=== PATIENT | male | born 1930 | race Two or more races ===

== ENCOUNTER 2016-07-01 12:36 | Emergency (ER) | payer MEDICARE, OTHER ==
[~2016-07-01] VITALS: Ht 172.7 cm; Wt 86.2 kg
[~2016-07-01 12:36] MED LIST: AMBIEN5 MG ORAL; ASPIR 8181 MG ORAL; ATORVASTATIN CA20 MG ORAL; AVODART0.5 MG ORAL; CEPHALEXIN500 MG ORAL; COLACE100 MG ORAL; CRESTOR10 M1 ORAL; DESYREL50 MG ORAL; DEXILANT60 MG ORAL; DIOVAN HCT 1601 EAC1 ORAL; INVOKANA100 MG PO; JANUVIA50 MG ORAL; KEFLEX500 M1 ORAL; LEXAPRO10 MG ORAL; LYRICA150 MG ORAL; MACROBID100 MG ORAL; RAPAFLO8 MG ORAL; VALSARTAN-HCTZ1 EAC2 ORAL; [UNRECOGNIZED DRUG - REMARK]
[2016-07-01] MEDS ORDERED: METFORMIN HCL500 M1 ORAL ×2 (13:15→13:16)
[2016-07-01 13:53] LABS: APPEARANCE,URINE SLIGHTLY CLOUDY; KETONES,URINE NEGATIVE (NEGATIVE); LEUKOCYTE ESTERASE ,URINE 3+ (NEGATIVE); NITRITE,URINE NEGATIVE (NEGATIVE); PH,URINE 5 (4.5-8.0); PROTEIN,URINE 2+ (NEGATIVE); UROBILINOGEN,URINE NORMAL MG/DL (0.0-1.0)
[2016-07-01 13:58] LABS: EOSINOPHILS % (AUTO) 1.4 % (0.0-3.0); LYMPHOCYTES % (AUTO) 29.6 % (20.0-45.0); MEAN CORPUSCULAR HEMOGLOBIN 31.2 PG (27.0-31.0); MEAN CORPUSCULAR HGB CONC 33.3 G/DL (32.0-36.0); MEAN CORPUSCULAR VOLUME 94 FL (80-99); MEAN PLATELET VOLUME 8.2 FL (6.5-10.1); MONOCYTES % (AUTO) 5.8 % (1.0-10.0); NEUTROPHILS % (AUTO) 62.3 % (45.0-75.0); PLATELET COUNT 219 K/UL (150-450); RED BLOOD COUNT 5.23 M/UL (4.70-6.10); RED CELL DISTRIBUTION WIDTH 12.5 % (11.6-14.8); WHITE BLOOD COUNT 8.7 K/UL (4.8-10.8)
[2016-07-01 14:03] LABS: ALANINE AMINOTRANSFERASE 13 U/L (3-41); ALBUMIN/GLOBULIN RATIO 1.2 (1.0-2.7); ANION GAP 11 (5-15); ASPARTATE AMINO TRANSFERASE 18 U/L (5-40); CALCIUM 9.8 mg/dL (8.6-10.2); CARBON DIOXIDE 32 mEQ/L (20-30); CHLORIDE 92 mEQ/L (98-107); CREATININE 1.2 mg/dL (0.7-1.2); HEMOLYSIS 9; POTASSIUM 4.4 mEQ/L (3.4-4.9); SODIUM 135 mEQ/L (135-145); TOTAL PROTEIN 7.2 g/dL (6.6-8.7)
[2016-07-01 14:08] LABS: BACTERIA,URINE FEW /HPF; RBC,URINE TNTC /HPF (0 - 0); SQUAMOUS EPITHELIAL CELL,UR OCCASIONAL /LPF (NONE/OCC); WBC,URINE 15-20 /HPF (0 - 0)
[2016-07-01 14:09] LABS: ICTOTEST NEGATIVE
[2016-07-01] MEDS ORDERED: LEVAQUIN500 MG ORAL (14:47)
[2016-07-01 14:50] VITALS: BP 99/58
--- NOTE | 2016-07-02 15:27 | Emergency Room Report ---
History of Present Illness General Chief Complaint: Male Urogenital Problems Source: Patient, Family Member Present Illness HPI 86 YO M sent by PMD Dr Montero for hematuria. Patient on ASA. Denies abd pain, nausea/vomiting, diarrhea, dysuria, polyuria. History of UTI. Dr Mota requesting labs, IV Rocephin empirically. Patient otherwise has no complaints. Allergies: Coded Allergies: PENICILLINS (Verified Allergy, Unknown, 07/01/16) PIPERACILLIN (Verified Allergy, Unknown, Hives, 10/09/15) TAZOBACTAM (Verified Allergy, Unknown, Hives, 10/09/15) Patient History Past Medical History: other - frequent UTI Past Surgical History: none Pertinent Family History: none Social History: Denies: alcohol use, drug use, smoking Immunizations: UTD Reviewed Nursing Documentation: PMH: Agreed, PSxH: Agreed Nursing Documentation-PMH Past Medical History: No History, Except For Hx Cardiac Problems: Yes Hx Hypertension: Yes Hx Diabetes: Yes Hx Cancer: No Hx Gastrointestinal Problems: Yes Hx Neurological Problems: No Review of Systems All Other Systems: negative except mentioned in HPI Physical Exam Vital Signs Date Time Temp Pulse Resp B/P Pulse Ox O2 Delivery O2 Flow Rate FiO2 07/01/16 12:49 98.1 74 18 146/83 94 Room Air Sp02 EP Interpretation: reviewed, normal General Appearance: normal inspection, well appearing, no apparent distress, alert Head: atraumatic ENT: normal ENT inspection, hearing grossly normal, normal voice Neck: normal inspection, full range of motion, supple, no bony tend Respiratory: normal inspection, lungs clear, normal breath sounds, no respiratory distress, no retraction, no wheezing Cardiovascular #1: regular rate, rhythm, no edema Gastrointestinal: normal inspection, normal bowel sounds, non tender, soft, no guarding, no hernia Musculoskeletal: normal inspection, back normal, normal range of motion, Walter' s Sign negative Neurologic: normal inspection, alert, responsive, speech normal Psychiatric: normal inspection, judgement/insight normal, mood/affect normal Skin: normal inspection, normal color, no rash Medical Decision Making Diagnostic Impression: Primary Impression: hematuria Additional Impression: uti ER Course 86 YO M found to have +LE, WBCs, RBCs in blood. Received empiric Levoflox here as is allergic to PCN. Rx Levo for 7 days DC home No systemic symptoms Hematuria likely combination of UTI and ASA use. Last Vital Signs Date Time Temp Pulse Resp B/P Pulse Ox O2 Delivery O2 Flow Rate FiO2 07/01/16 14:50 97.8 79 18 99/58 94 Room Air Status: improved Disposition: HOME, SELF-CARE Condition: Improved Scripts Levofloxacin* (LEVAQUIN*) 500 Mg Tablet 500 MG ORAL DAILY for 7 Days, TAB Prov: MARIZOL DUKES D.O. 07/01/16 Referrals: LEROY TAN (PCP) Patient Instructions: Urinary Tract Infection, Hematuria, Adult NOEMI YOUNGBLOOD M.D. Jul 02, 2016 15:27
== END 2016-07-01 14:50 | disposition home or self-care (01) ==
LOC: EMR 14:12
DX: R31.9 Hematuria, unspecified (principal); N39.0 Urinary tract infection, site not specified; I10 Essential (primary) hypertension; Z87.19 Personal history of other diseases of the digestive system; Z88.0 Allergy status to penicillin
CPT/HCPCS: 36415; 80053; 81003; 85025; 87086; 87181; 96374; 99284; J1956

== ENCOUNTER 2017-03-16 13:31 | Emergency (ER) | payer MEDICARE, OTHER ==
[~2017-03-16] VITALS: Ht 175.3 cm; Wt 90.7 kg
[~2017-03-16 13:31] MED LIST changes: +LEVAQUIN500 MG ORAL; +METFORMIN HCL500 M1 ORAL
--- NOTE | 2017-03-16 14:09 | Emergency Room Report ---
History of Present Illness General Chief Complaint: Abdominal Pain Source: Patient Present Illness HPI The patient is an 79-year-old male who presented after increased lower bowel pain. Patient reported having bilateral lower pain. This did not radiate. Patient was noted to have some slightly greater pain to the right lower abdomen. Patient had not been vomiting or having diarrhea. Patient had reportedly had a skin rash for the past several months. The patient had previously had biopsy on this but had unclear diagnosis.Patient had not been having any black or bloody stools. Not been vomiting. The patient denied any radiation of symptoms. The pain waxed and waned. Pain is moderate in severity. Allergies: Coded Allergies: PENICILLINS (Verified Allergy, Unknown, 07/01/16) PIPERACILLIN (Verified Allergy, Unknown, Hives, 10/09/15) TAZOBACTAM (Verified Allergy, Unknown, Hives, 10/09/15) Patient History Past Medical History: see triage record Reviewed Nursing Documentation: PMH: Agreed, PSxH: Agreed Nursing Documentation-PMH Hx Cardiac Problems: Yes Hx Hypertension: Yes Hx Diabetes: Yes Hx Cancer: No Hx Gastrointestinal Problems: Yes Hx Neurological Problems: No Review of Systems All Other Systems: negative except mentioned in HPI Physical Exam Vital Signs Date Time Temp Pulse Resp B/P (MAP) Pulse Ox O2 Delivery O2 Flow Rate FiO2 03/16/17 13:51 97.9 79 20 166/89 100 Room Air Sp02 EP Interpretation: reviewed, normal General Appearance: normal inspection, well appearing, no apparent distress, alert, GCS 15 Head: atraumatic ENT: normal ENT inspection, hearing grossly normal, normal voice Neck: normal inspection, full range of motion, supple, no bony tend Respiratory: normal inspection, lungs clear, normal breath sounds, no respiratory distress, no retraction, no wheezing Cardiovascular #1: regular rate, rhythm, no edema Gastrointestinal: normal inspection, normal bowel sounds, non tender, soft, no guarding, no hernia Genitourinary: no CVA tenderness Musculoskeletal: normal inspection, back normal, normal range of motion Neurologic: normal inspection, alert, oriented x3, responsive, ship's pilot III-XII nml as tested, motor strength/tone normal, speech normal Psychiatric: normal inspection, judgement/insight normal, mood/affect normal Skin: no rash, other - trunk and lower extremity palpable purpuric rash Medical Decision Making Diagnostic Impression: Primary Impression: Abdominal pain Additional Impression: Common bile duct stone ER Course Patient presented for abdominal pain. Differential diagnoses included ischemic bowel, appendicitis, vasculitis, perforated viscus, abdominal aortic aneurysm, inferior myocardial infarction, viral gastroenteritis Because of complexity of patient's case laboratory testing and imaging studies were ordered. The patient's skin rash appears to be concerning for vasculitis. This appears to be somewhat chronic. The patient has some tenderness in the right lower abdomen. Patient was noted to have no vomiting or diarrhea with a history of diabetesThe patient was noted to have normal white blood count. Patient was discussed with patient's son. The CT results was discussed with Dr. Paige for further definitive management of common duct stone. The patient declined inpatient management and stated he would return if pain worsens or other problems. The patient will likely require ERCP. The patient's son was notified of the CT findings indicates understanding. Labs Test 03/16/17 14:15 03/16/17 14:23 Urine Color Yellow Urine Appearance Slightly cloudy Urine pH 5 (4.5-8.0) Urine Specific [place] 1.015 (1.005-1.035) Urine Protein 2+ (NEGATIVE) Urine Glucose (UA) Negative (NEGATIVE) Urine Ketones Negative (NEGATIVE) Urine Occult Blood 2+ (NEGATIVE) Urine Nitrite Negative (NEGATIVE) Urine Bilirubin Negative (NEGATIVE) Urine Urobilinogen Normal MG/DL (0.0-1.0) Urine Leukocyte Esterase 1+ (NEGATIVE) Urine RBC 2-4 /HPF (0 - 0) Urine WBC 2-4 /HPF (0 - 0) Urine Squamous Epithelial Cells Few /LPF (NONE/OCC) Urine Bacteria Few /HPF (NONE) White Blood Count 9.5 K/UL (4.8-10.8) Red Blood Count 5.69 M/UL (4.70-6.10) Hemoglobin 17.1 G/DL (14.2-18.0) Hematocrit 53.9 % (42.0-52.0) Mean Corpuscular Volume 95 FL (80-99) Mean Corpuscular Hemoglobin 30.1 PG (27.0-31.0) Mean Corpuscular Hemoglobin Concent 31.8 G/DL (32.0-36.0) Red Cell Distribution Width 11.9 % (11.6-14.8) Platelet Count 207 K/UL (150-450) Mean Platelet Volume 8.7 FL (6.5-10.1) Neutrophils (%) (Auto) 66.3 % (45.0-75.0) Lymphocytes (%) (Auto) 23.3 % (20.0-45.0) Monocytes (%) (Auto) 7.9 % (1.0-10.0) Eosinophils (%) (Auto) 1.7 % (0.0-3.0) Basophils (%) (Auto) 0.7 % (0.0-2.0) Erythrocyte Sedimentation Rate 14 MM/HR (0-30) Prothrombin Time 9.6 SEC (9.30-11.50) Prothromb Time International Ratio 0.9 (0.9-1.1) Activated Partial Thromboplast Time 28 SEC (23-33) Sodium Level 132 mEQ/L (135-145) Potassium Level 4.3 mEQ/L (3.4-4.9) Chloride Level 95 mEQ/L (98-107) Carbon Dioxide Level 28 mEQ/L (20-30) Anion Gap 9 (5-15) Blood Urea Nitrogen 16 mg/dL (7-23) Creatinine 0.9 mg/dL (0.7-1.2) Estimat Glomerular Filtration Rate mL/min (>60) Glucose Level 208 mg/dL (74-106) Calcium Level 8.7 mg/dL (8.6-10.2) Total Bilirubin 0.5 mg/dL (0.0-1.2) Aspartate Amino Transf (AST/SGOT) 23 U/L (5-40) Alanine Aminotransferase (ALT/SGPT) 20 U/L (3-41) Alkaline Phosphatase 67 U/L (40-129) Troponin I < 0.30 ng/mL (<=0.30) Total Protein 6.7 g/dL (6.6-8.7) Albumin 3.5 g/dL (3.5-5.2) Globulin 3.2 g/dL Albumin/Globulin Ratio 1.0 (1.0-2.7) Lipase 15 U/L (< 60) Last Vital Signs Date Time Temp Pulse Resp B/P (MAP) Pulse Ox O2 Delivery O2 Flow Rate FiO2 03/16/17 13:51 97.9 79 20 166/89 100 Room Air Status: improved Disposition: HOME, SELF-CARE Condition: Stable Scripts Docusate Sodium* (COLACE*) 100 Mg Capsule 100 MG ORAL TWICE A DAY, #20 CAP Prov: Tommy Lu 03/16/17 Hydrocodone Bit/Acetaminophen 5-325* (NORCO 5-325 TABLET*) 1 Each Tablet 1 TAB ORAL Q4H Y for For Pain, #20 TAB Prov: Tommy Lu 03/16/17 Tommy Lu Mar 16, 2017 14:09
[2017-03-16] MEDS ORDERED: Morphine Sulfate 2mg/ml Inj IVP ONE (14:15)
[2017-03-16 14:38] LABS: APPEARANCE,URINE SLIGHTLY CLOUDY; KETONES,URINE NEGATIVE (NEGATIVE); LEUKOCYTE ESTERASE ,URINE 1+ (NEGATIVE); NITRITE,URINE NEGATIVE (NEGATIVE); PH,URINE 5 (4.5-8.0); PROTEIN,URINE 2+ (NEGATIVE); UROBILINOGEN,URINE NORMAL MG/DL (0.0-1.0)
[2017-03-16 14:42] LABS: BASOPHILS % (AUTO) 0.7 % (0.0-2.0); EOSINOPHILS % (AUTO) 1.7 % (0.0-3.0); LYMPHOCYTES % (AUTO) 23.3 % (20.0-45.0); MEAN CORPUSCULAR HEMOGLOBIN 30.1 PG (27.0-31.0); MEAN CORPUSCULAR HGB CONC 31.8 G/DL (32.0-36.0); MEAN CORPUSCULAR VOLUME 95 FL (80-99); MEAN PLATELET VOLUME 8.7 FL (6.5-10.1); MONOCYTES % (AUTO) 7.9 % (1.0-10.0); NEUTROPHILS % (AUTO) 66.3 % (45.0-75.0); PLATELET COUNT 207 K/UL (150-450); RED BLOOD COUNT 5.69 M/UL (4.70-6.10); RED CELL DISTRIBUTION WIDTH 11.9 % (11.6-14.8); WHITE BLOOD COUNT 9.5 K/UL (4.8-10.8)
[2017-03-16 14:43] LABS: BACTERIA,URINE FEW /HPF; SQUAMOUS EPITHELIAL CELL,UR FEW /LPF (NONE/OCC)
[2017-03-16 14:54] LABS: INR 0.9 (0.9-1.1); PROTHROMBIN TIME 9.6 SEC (9.30-11.50)
[2017-03-16 14:56] LABS: ALANINE AMINOTRANSFERASE 20 U/L (3-41); ANION GAP 9 (5-15); ASPARTATE AMINO TRANSFERASE 23 U/L (5-40); CALCIUM 8.7 mg/dL (8.6-10.2); CARBON DIOXIDE 28 mEQ/L (20-30); CHLORIDE 95 mEQ/L (98-107); CREATININE 0.9 mg/dL (0.7-1.2); HEMOLYSIS 9; LIPASE 15 U/L (< 60); POTASSIUM 4.3 mEQ/L (3.4-4.9); SODIUM 132 mEQ/L (135-145); TOTAL PROTEIN 6.7 g/dL (6.6-8.7); TROPONIN I < 0.30 ng/mL (<=0.30)
[2017-03-16 16:26] VITALS: BP 146/78
[2017-03-16] MEDS ORDERED: COLACE100 MG ORAL (18:53)
[2017-03-16] MEDS ORDERED: NORCO 5-325 TA1 EAC1 ORAL (18:53)
[2017-03-16 19:17] VITALS: BP 135/84
--- NOTE | 2017-03-17 12:34 | Diagnostic Imaging Report ---
Indication: Abdominal pain Comparison: None Technique: Contiguous helical CT images through the abdomen and pelvis was performed the use of intravenous and oral contrast. Axial, coronal and sagittal reconstructions were reformatted. CT Dose: Total DLP: 2962 mGycm; Total CTDI volume 105, 25, 20 Findings: Vascular: Abdominal aorta and iliac arteries are of normal caliber without evidence of aneurysm or dissection. There is moderate atherosclerotic changes in the aorta. Celiac axis, SMA, bilateral renal arteries and RIMA are patent with no significant stenosis. Bilateral iliac arteries are patent without stenosis. Hepatic cysts are noted, largest measuring 3.3 cm. There is a intrahepatic and common bile duct dilation. Common bile duct is dilated to 16 mm. There is moderate biliary ductal dilation is likely secondary to a faint 14 mm stone in the distal common bile duct. Gallstones are noted without evidence of cholecystitis. Spleen is normal. Pancreas is normal. Adrenal glands are normal. Kidneys are without hydronephrosis. Left renal cysts are noted. Ureters are normal. No evidence of bowel obstruction. There is some small bowel wall thickening noted in the right abdomen. Enteritis cannot be excluded. Correlate clinically. No free fluid or free air. Urinary bladder is normal. There is a heavily calcified prostate noted. Atherosclerotic calcifications are seen in the aorta. No aneurysm or dissection. No significant lymphadenopathy. Atelectasis in the lung bases. No acute osseous abnormalities. Degenerative changes in the thoracolumbar spine. Impression: No acute abnormalities of the abdomen or pelvis. Aorta: No aneurysm, dissection. Moderate atherosclerotic changes. Major branches are patent. Moderate biliary duct dilation secondary to a faint 14 mm stone in the distal common bile duct. Cholelithiasis. Hepatic cysts and renal cysts. Colonic diverticulosis without diverticulitis. Heavily calcified prostate. Spondylosis.
== END 2017-03-16 19:22 | disposition home or self-care (01) ==
LOC: EMR 14:14
DX: R10.9 Unspecified abdominal pain (principal); K80.50 Calculus of bile duct without cholangitis or cholecystitis without obstruction; Z88.0 Allergy status to penicillin; Z86.79 Personal history of other diseases of the circulatory system; I10 Essential (primary) hypertension; Z87.19 Personal history of other diseases of the digestive system; R21 Rash and other nonspecific skin eruption
CPT/HCPCS: 36415; 74175; 80053; 81003; 83690; 84484; 85025; 85610; 85651; 85730; 86850; 86900; 86901; 96374; 96375; 99284; J2270; J2405; Q9967

== ENCOUNTER 2017-07-06 10:06 | Inpatient (IN) | payer MEDICARE ==
[~2017-07-06] VITALS: Ht 175.3 cm; Wt 81.6 kg
[~2017-07-06 10:06] MED LIST changes: +NORCO 5-325 TA1 EAC1 ORAL
[2017-07-06 10:51] LABS: HEMATOCRIT 49.6 % (42.0-52.0); HEMOGLOBIN 15.8 G/DL (14.2-18.0); MEAN CORPUSCULAR VOLUME 93 FL (80-99); PLATELET COUNT 146 K/UL (150-450); RED BLOOD COUNT 5.33 M/UL (4.70-6.10); RED CELL DISTRIBUTION WIDTH 12.8 % (11.6-14.8)
[2017-07-06] MEDS ORDERED: cefTRIAXone 1 GM in NS 55 ML IVPB ONE ×2 (11:00→20:00)
[2017-07-06 11:01] LABS: APPEARANCE,URINE CLEAR; BILIRUBIN, URINE NEGATIVE (NEGATIVE); COLOR,URINE PALE YELLOW; GLUCOSE, URINE (UA) NEGATIVE (NEGATIVE); KETONES,URINE NEGATIVE (NEGATIVE); LEUKOCYTE ESTERASE ,URINE 3+ (NEGATIVE); NITRITE,URINE POSITIVE (NEGATIVE); PH,URINE 6 (4.5-8.0); PROTEIN,URINE 2+ (NEGATIVE); UROBILINOGEN,URINE NORMAL MG/DL (0.0-1.0)
[2017-07-06 11:07] LABS: ANION GAP 9 mmol/L (5-15); BLOOD UREA NITROGEN 20 mg/dL (7-18); CALCIUM 8.8 MG/DL (8.5-10.1); CARBON DIOXIDE 26 MMOL/L (21-32); CHLORIDE 101 MMOL/L (98-107); POTASSIUM 4.3 MMOL/L (3.5-5.1); SODIUM 136 MMOL/L (136-145)
--- NOTE | 2017-07-06 11:22 | Emergency Room Report ---
History of Present Illness General Chief Complaint: Generalized Weakness Source: Patient, Medical Record, PMD Present Illness HPI 79-year-old male brought by a relative from home with acute onset of chills Denies abdominal pain, nausea, vomiting, chest pain or shortness of breath Relative endorses that when this happens usually due to UTI Patient denies any cough or shortness of breath or recent flulike symptoms Allergies: Coded Allergies: PENICILLINS (Verified Allergy, Unknown, 07/01/16) PIPERACILLIN (Verified Allergy, Unknown, Hives, 10/09/15) TAZOBACTAM (Verified Allergy, Unknown, Hives, 10/09/15) Patient History Past Medical History: old chart reviewed Past Surgical History: none Pertinent Family History: none Social History: Denies: smoking, alcohol use, drug use Immunizations: UTD Reviewed Nursing Documentation: PMH: Agreed, PSxH: Agreed Nursing Documentation-PMH Past Medical History: No History, Except For Hx Hypertension: Yes Hx Pacemaker: No Hx Asthma: No Hx COPD: No Hx Diabetes: Yes Hx Cerebrovascular Accident: No Hx Seizures: No Review of Systems All Other Systems: negative except mentioned in HPI Physical Exam Vital Signs Date Time Temp Pulse Resp B/P (MAP) Pulse Ox O2 Delivery O2 Flow Rate FiO2 07/06/17 10:16 98.4 101 18 180/122 90 Room Air Sp02 EP Interpretation: reviewed, normal General Appearance: normal inspection, well appearing, no apparent distress, alert, GCS 15, non-toxic Head: normocephalic, atraumatic Eyes: bilateral eye PERRL, bilateral eye EOMI ENT: normal ENT inspection, hearing grossly normal, normal pharynx, no angioedema, normal voice, TMs + canals normal, uvula midline, moist mucus membranes Neck: normal inspection, full range of motion, supple, thyroid normal, no meningismus, no bony tend Respiratory: normal inspection, lungs clear, normal breath sounds, no rhonchi, no respiratory distress, no retraction, no accessory muscle use, no wheezing, speaking full sentences Cardiovascular #1: regular rate, rhythm, no edema, no JVD, normal capillary refill Gastrointestinal: normal inspection, normal bowel sounds, non tender, soft, no mass, no peritonitis, non-distended, no guarding, no hernia, no pulsatile mass Genitourinary: no CVA tenderness Musculoskeletal: normal inspection, back normal, normal range of motion, no calf tenderness, pelvis stable, Walter's Sign negative Neurologic: normal inspection, alert, oriented x3, responsive, senior grants officer III-XII nml as tested, motor strength/tone normal, cerebellar normal, normal gait, speech normal Psychiatric: normal inspection, judgement/insight normal, mood/affect normal, no suicidal/homicidal ideation, no delusions Skin: normal inspection, normal color, no rash Lymphatic: normal inspection, no adenopathy Medical Decision Making Diagnostic Impression: Primary Impression: Acute UTI ER Course mild tachycardia, normotensive and afebrile labs significant for nitrite positive UTI No leukocytosis, or metabolic abnormalities Patient's urine culture from last year so his resistance to fluoroquinolones and Bactrim She has allergy to penicillin and Zosyn however per PMD has tolerated Rocephin in the past Blood and urine cultures pending empiric Rocephin given Endorsed to Dr Paige for tele admit 1122am EKG Diagnostic Results Rate: normal Rhythm: other - bifascular block ST Segments: no acute changes ASA given to the pt in ED: No Rhythm Strip Diag. Results EP Interpretation: yes Rate: 103 Rhythm: NSR, no PVC's, no ectopy Last Vital Signs Date Time Temp Pulse Resp B/P (MAP) Pulse Ox O2 Delivery O2 Flow Rate FiO2 07/06/17 11:15 102.5 07/06/17 10:16 101 18 180/122 90 Room Air Status: improved Disposition: ADMITTED INPATIENT Condition: Stable NOEMI YOUNGBLOOD M.D. Jul 06, 2017 11:22
[2017-07-06 11:25] LABS: ALANINE AMINOTRANSFERASE 15 U/L (12-78); ALBUMIN 3.6 G/DL (3.4-5.0); ALKALINE PHOSPHATASE 73 U/L (46-116); ASPARTATE AMINO TRANSFERASE 22 U/L (15-37)
--- NOTE | 2017-07-06 13:06 | History & Physical ---
History and Physical History & Physicial (1) Acute UTI (2) DM (diabetes mellitus) (3) BPH (benign prostatic hyperplasia) (4) HTN (hypertension) (5) Hyperlipidemia # [id number] LEROY TAN Jul 06, 2017 13:06
[2017-07-06 13:30] VITALS: BP 120/64
[2017-07-06] MEDS ORDERED: Metoprolol 25mg tab ORAL ONE (14:00)
--- NOTE | 2017-07-06 14:58 | Infectious Diseases Prog Note ---
Assessment/Plan Problems: (1) Acute UTI Assessment & Plan: will send urine for culture and start cefepime empiric coverage (2) Sepsis Assessment & Plan: due to the above , with possible pyelonephritis, will send blood culture and start cefepime empiric coverage (3) Fever with chills Assessment & Plan: due to the above, continue wide spectrum antibiotics and tylenol (4) BPH (benign prostatic hyperplasia) Assessment & Plan: on flomax, follow up with urologist (5) DM (diabetes mellitus) Assessment & Plan: recommend tight glycemic control to keep blood glucose between 100-140 Subjective Allergies: Coded Allergies: PENICILLINS (Verified Allergy, Unknown, 07/01/16) PIPERACILLIN (Verified Allergy, Unknown, Hives, 10/09/15) TAZOBACTAM (Verified Allergy, Unknown, Hives, 10/09/15) Objective Vital Signs Last 24 Hour Vital Signs Date Time Temp Pulse Resp B/P (MAP) Pulse Ox O2 Delivery O2 Flow Rate FiO2 07/06/17 13:30 98.5 94 20 120/64 94 Nasal Cannula 4.0 07/06/17 11:15 102.5 07/06/17 10:16 98.4 101 18 180/122 90 Room Air Height (Feet): 5 Height (Inches): 9.00 Weight (Pounds): 180 Microbiology Date/Time Source Procedure Growth Status 07/06/17 11:18 Nasal Nares Influenza Types A,B Antigen (KATHIE) - Final Complete Laboratory Tests Test 07/06/17 10:30 07/06/17 10:35 07/06/17 12:00 Urine Color Pale yellow Urine Appearance Clear Urine pH 6 (4.5-8.0) Urine Specific [place] 1.010 (1.005-1.035) Urine Protein 2+ (NEGATIVE) H Urine Glucose (UA) Negative (NEGATIVE) Urine Ketones Negative (NEGATIVE) Urine Occult Blood 5+ (NEGATIVE) H Urine Nitrite Positive (NEGATIVE) H Urine Bilirubin Negative (NEGATIVE) Urine Urobilinogen Normal MG/DL (0.0-1.0) Urine Leukocyte Esterase 3+ (NEGATIVE) H Urine RBC 20-30 /HPF (0 - 0) H Urine WBC 15-20 /HPF (0 - 0) H Urine Squamous Epithelial Cells Occasional /LPF Urine Bacteria Moderate /HPF (NONE) H White Blood Count 6.0 K/UL (4.8-10.8) Red Blood Count 5.33 M/UL (4.70-6.10) Hemoglobin 15.8 G/DL (14.2-18.0) Hematocrit 49.6 % (42.0-52.0) Mean Corpuscular Volume 93 FL (80-99) Mean Corpuscular Hemoglobin 29.7 PG (27.0-31.0) Mean Corpuscular Hemoglobin Concent 31.9 G/DL (32.0-36.0) L Red Cell Distribution Width 12.8 % (11.6-14.8) Platelet Count 146 K/UL (150-450) L Mean Platelet Volume 7.5 FL (6.5-10.1) Neutrophils (%) (Auto) % (45.0-75.0) Lymphocytes (%) (Auto) % (20.0-45.0) Monocytes (%) (Auto) % (1.0-10.0) Eosinophils (%) (Auto) % (0.0-3.0) Basophils (%) (Auto) % (0.0-2.0) Differential Total Cells Counted 100 Neutrophils % (Manual) 83 % (45-75) H Lymphocytes % (Manual) 11 % (20-45) L Monocytes % (Manual) 2 % (1-10) Eosinophils % (Manual) 1 % (0-3) Basophils % (Manual) 0 % (0-2) Band Neutrophils 3 % (0-8) Platelet Estimate Adequate Platelet Morphology Normal Red Blood Cell Morphology Normal Sodium Level 136 MMOL/L (136-145) Potassium Level 4.3 MMOL/L (3.5-5.1) Chloride Level 101 MMOL/L (98-107) Carbon Dioxide Level 26 MMOL/L (21-32) Anion Gap 9 mmol/L (5-15) Blood Urea Nitrogen 20 mg/dL (7-18) H Creatinine 1.0 MG/DL (0.55-1.30) Estimat Glomerular Filtration Rate mL/min (>60) Glucose Level 156 MG/DL (74-106) H Lactic Acid Level 2.40 mmol/L (0.66-2.22) H 2.30 mmol/L (0.66-2.22) H Calcium Level 8.8 MG/DL (8.5-10.1) Total Bilirubin 1.0 MG/DL (0.2-1.0) Aspartate Amino Transf (AST/SGOT) 22 U/L (15-37) Alanine Aminotransferase (ALT/SGPT) 15 U/L (12-78) Alkaline Phosphatase 73 U/L (46-116) C-Reactive Protein, Quantitative 0.9 mg/dL (0.00-0.90) Total Protein 7.1 G/DL (6.4-8.2) Albumin 3.6 G/DL (3.4-5.0) Globulin 3.5 g/dL Albumin/Globulin Ratio 1.0 (1.0-2.7) Lipase 72 U/L (73-393) L Current Medications Medications (Trade) Dose Ordered Sig/Ashley Route PRN Reason Start Time Stop Time Status Last Admin Dose Admin Acetaminophen (Tylenol) 650 mg Q4HR PRN ORAL mod pain- T over 100F 07/06/17 13:15 08/05/17 13:14 Aspirin (Ecotrin) 81 mg DAILY ORAL 07/07/17 09:00 08/06/17 08:59 Ceftriaxone Sodium 1 gm/ Sodium Chloride 55 ml @ 110 mls/hr DAILY IVPB 07/07/17 09:00 07/14/17 08:59 Ceftriaxone Sodium 1 gm/ Sodium Chloride 55 ml @ 110 mls/hr ONCE ONCE IVPB 07/06/17 20:00 07/06/17 20:29 Diphenhydramine HCl (Benadryl) 25 mg Q6HR PRN ORAL itching 07/06/17 13:15 08/05/17 13:14 Docusate Sodium (Colace) 100 mg TID ORAL 07/06/17 14:00 08/05/17 13:59 Heparin Sodium (Porcine) (Heparin 5000 units/ml) 5,000 units EVERY 12 HOURS SUBQ 07/06/17 21:00 08/05/17 20:59 Metoprolol Tartrate (Lopressor) 25 mg Q12HR ORAL 07/06/17 21:00 08/05/17 20:59 Pantoprazole (Protonix) 40 mg Q12HR ORAL 07/06/17 21:00 08/05/17 20:59 Sitagliptin Phosphate (Januvia) 50 mg ACBREAKFAST ORAL 07/07/17 06:30 08/06/17 06:29 Tamsulosin HCl (Flomax) 0.4 mg BID ORAL 07/06/17 18:00 08/05/17 17:59 Trazodone HCl (Desyrel) 50 mg BEDTIME ORAL 07/06/17 21:00 08/05/17 20:59 Kevon Montano M.D. Jul 06, 2017 14:58
[2017-07-06 15:30] VITALS: BP 99/45
[2017-07-06] MEDS: Docusate 100mg cap ORAL SCH ×2 (15:59→18:55)
[2017-07-06] MEDS: Tamsulosin 0.4mg cap ORAL SCH (18:55)
[2017-07-06] MEDS: Cefepime HCl 2 GM in D5W 55 ML IVPB SCH (19:44)
[2017-07-06 19:58] VITALS: BP 99/56
[2017-07-06] MEDS: TraZODone 50mg tab ORAL SCH (20:48)
[2017-07-06] MEDS: Heparin 5000 units/ml inj SUBQ SCH (20:49)
[2017-07-06] MEDS: Metoprolol 25mg tab ORAL SCH (20:49)
[2017-07-07 04:18] VITALS: BP 105/51
[2017-07-07] MEDS: Cefepime HCl 2 GM in D5W 55 ML IVPB SCH (04:19)
[2017-07-07] MEDS: sitaGLIPtin 50mg tab ORAL SCH (05:28)
[2017-07-07 07:39] LABS: BASOPHILS % (AUTO) 0.3 % (0.0-2.0); EOSINOPHILS % (AUTO) 0.5 % (0.0-3.0); HEMATOCRIT 40.7 % (42.0-52.0); HEMOGLOBIN 13.6 G/DL (14.2-18.0); LYMPHOCYTES % (AUTO) 11.1 % (20.0-45.0); MEAN CORPUSCULAR VOLUME 93 FL (80-99); MONOCYTES % (AUTO) 4.8 % (1.0-10.0); NEUTROPHILS % (AUTO) 83.3 % (45.0-75.0); PLATELET COUNT 148 K/UL (150-450); RED BLOOD COUNT 4.37 M/UL (4.70-6.10); RED CELL DISTRIBUTION WIDTH 12.8 % (11.6-14.8); WHITE BLOOD COUNT 9.9 K/UL (4.8-10.8)
[2017-07-07 07:54] LABS: ALANINE AMINOTRANSFERASE 20 U/L (12-78); ALBUMIN 2.8 G/DL (3.4-5.0); ALBUMIN/GLOBULIN RATIO 0.9 (1.0-2.7); ALKALINE PHOSPHATASE 51 U/L (46-116); ANION GAP 6 mmol/L (5-15); ASPARTATE AMINO TRANSFERASE 21 U/L (15-37); BILIRUBIN,TOTAL 0.8 MG/DL (0.2-1.0); BLOOD UREA NITROGEN 25 mg/dL (7-18); CALCIUM 8.2 MG/DL (8.5-10.1); CARBON DIOXIDE 32 MMOL/L (21-32); CHLORIDE 101 MMOL/L (98-107); CHOLESTEROL 120 MG/DL (< 200); CREATININE 1.2 MG/DL (0.55-1.30); GAMMA GLUTAMYL TRANSPEPTIDASE 60 U/L (5-85); HDL CHOLESTEROL 46 MG/DL (40-60); PHOSPHORUS 2.7 MG/DL (2.5-4.9); POTASSIUM 4.3 MMOL/L (3.5-5.1); SODIUM 138 MMOL/L (136-145); TRIGLYCERIDES 54 MG/DL (30-150)
[2017-07-07 08:00] VITALS: BP 121/63
[2017-07-07] MEDS: Heparin 5000 units/ml inj SUBQ SCH ×2 (09:00→21:00)
[2017-07-07] MEDS ORDERED: Aspirin EC 81mg tab ORAL SCH (09:00)
[2017-07-07] MEDS ORDERED: cefTRIAXone 1 GM in NS 55 ML IVPB SCH (09:00)
--- NOTE | 2017-07-07 10:13 | General Progress Note ---
Assessment/Plan Status: stable Status Narrative 1) Acute UTI , high lactic , chamge in [place] on admit : Sepsis (2) DM (diabetes mellitus) (3) BPH (benign prostatic hyperplasia) (4) HTN (hypertension) (5) Hyperlipidemia (6) Trop elevation) Assessment/Plan Plan: Cefepime per ID ASA Beta celine Vit D , B 12 keep BS in check Subjective ROS Limited/Unobtainable: No Constitutional: Reports: other - complains of food Allergies: Coded Allergies: PENICILLINS (Verified Allergy, Unknown, 07/01/16) PIPERACILLIN (Verified Allergy, Unknown, Hives, 10/09/15) TAZOBACTAM (Verified Allergy, Unknown, Hives, 10/09/15) Objective Last 24 Hour Vital Signs Date Time Temp Pulse Resp B/P (MAP) Pulse Ox O2 Delivery O2 Flow Rate FiO2 07/07/17 08:00 98.2 64 20 121/63 92 07/07/17 04:18 93 Room Air 07/07/17 04:18 97.3 60 20 105/51 93 Room Air 07/06/17 20:49 59 99/56 07/06/17 20:00 93 Room Air 07/06/17 19:58 98.1 59 20 99/56 93 Room Air 07/06/17 16:10 98.5 91 20 99/45 94 Nasal Cannula 4.0 07/06/17 15:58 91 99/45 07/06/17 15:30 91 20 99/45 94 Nasal Cannula 4.0 07/06/17 13:49 98.5 07/06/17 13:30 98.5 94 20 120/64 94 Nasal Cannula 4.0 07/06/17 11:15 102.5 07/06/17 10:16 98.4 101 18 180/122 90 Room Air Intake and Output 07/06/17 07/07/17 19:00 07:00 Intake Total 55 ml 110 ml Balance 55 ml 110 ml Intake Oral 0 ml IV Total 55 ml 110 ml # Voids 4 # Bowel Movements 1 Laboratory Tests 07/06/17 10:30: Urine Color Pale yellow, Urine Appearance Clear, Urine pH 6, Urine Specific Handley 1.010, Urine Protein 2+H, Urine Glucose (UA) Negative, Urine Ketones Negative, Urine Occult Blood 5+H, Urine Nitrite PositiveH, Urine Bilirubin Negative, Urine Urobilinogen Normal, Urine Leukocyte Esterase 3+H, Urine RBC 20- 30H, Urine WBC 15-20H, Urine Squamous Epithelial Cells Occasional, Urine Bacteria ModerateH 07/06/17 10:35: White Blood Count 6.0, Red Blood Count 5.33, Hemoglobin 15.8, Hematocrit 49.6, Mean Corpuscular Volume 93, Mean Corpuscular Hemoglobin 29.7, Mean Corpuscular Hemoglobin Concent 31.9L, Red Cell Distribution Width 12.8, Platelet Count 146L , Mean Platelet Volume 7.5, Neutrophils (%) (Auto) , Lymphocytes (%) (Auto) , Monocytes (%) (Auto) , Eosinophils (%) (Auto) , Basophils (%) (Auto) , Differential Total Cells Counted 100, Neutrophils % (Manual) 83H, Lymphocytes % (Manual) 11L, Monocytes % (Manual) 2, Eosinophils % (Manual) 1, Basophils % ( Manual) 0, Band Neutrophils 3, Platelet Estimate Adequate, Platelet Morphology Normal, Red Blood Cell Morphology Normal, Sodium Level 136, Potassium Level 4.3 , Chloride Level 101, Carbon Dioxide Level 26, Anion Gap 9, Blood Urea Nitrogen 20H, Creatinine 1.0, Estimat Glomerular Filtration Rate , Glucose Level 156H, Lactic Acid Level 2.40H, Calcium Level 8.8, Total Bilirubin 1.0, Aspartate Amino Transf (AST/SGOT) 22, Alanine Aminotransferase (ALT/SGPT) 15, Alkaline Phosphatase 73, C-Reactive Protein, Quantitative 0.9, Total Protein 7.1, Albumin 3.6, Globulin 3.5, Albumin/Globulin Ratio 1.0, Lipase 72L 07/06/17 12:00: Lactic Acid Level 2.30H 07/07/17 05:55: White Blood Count 9.9#, Red Blood Count 4.37L, Hemoglobin 13.6L, Hematocrit 40.7L, Mean Corpuscular Volume 93, Mean Corpuscular Hemoglobin 31.0, Mean Corpuscular Hemoglobin Concent 33.3, Red Cell Distribution Width 12.8, Platelet Count 148L, Mean Platelet Volume 7.7, Neutrophils (%) (Auto) 83.3H, Lymphocytes (%) (Auto) 11.1L, Monocytes (%) (Auto) 4.8, Eosinophils (%) (Auto) 0.5, Basophils (%) (Auto) 0.3, Sodium Level 138, Potassium Level 4.3, Chloride Level 101, Carbon Dioxide Level 32, Anion Gap 6, Blood Urea Nitrogen 25H, Creatinine 1.2, Estimat Glomerular Filtration Rate , Glucose Level 137H, Lactic Acid Level 1.00, Calcium Level 8.2L, Total Bilirubin 0.8, Aspartate Amino Transf (AST/SGOT ) 21, Alanine Aminotransferase (ALT/SGPT) 20, Alkaline Phosphatase 51, Total Protein 6.0L, Albumin 2.8L, Globulin 3.2, Albumin/Globulin Ratio 0.9L, Hemoglobin A1c 6.7H, Uric Acid 5.6, Phosphorus Level 2.7, Magnesium Level 1.8, Gamma Glutamyl Transpeptidase 60, Troponin I 0.062H, Pro-B-Type Natriuretic Peptide 1822H, Triglycerides Level 54, Cholesterol Level 120, LDL Cholesterol 72 , HDL Cholesterol 46, Cholesterol/HDL Ratio 2.6L, Vitamin B12 Level 254, Folate 8.6, Thyroid Stimulating Hormone (TSH) 0.486 Height (Feet): 5 Height (Inches): 9.00 Weight (Pounds): 180 General Appearance: no apparent distress Cardiovascular: normal rate Respiratory/Chest: decreased breath sounds Abdomen: other - obese Objective no other change LEROY TAN Jul 07, 2017 10:13
[2017-07-07] MEDS: Docusate 100mg cap ORAL SCH ×3 (10:20→18:16)
[2017-07-07] MEDS: Tamsulosin 0.4mg cap ORAL SCH ×2 (10:20→18:16)
[2017-07-07] MEDS: Metoprolol 25mg tab ORAL SCH ×2 (10:21→21:17)
[2017-07-07] MEDS: Nitroglycerin Patch 0.2mg/hr TDERMAL SCH (10:21)
[2017-07-07] MEDS ORDERED: Vitamin D 50,000 units cap ORAL SCH (11:00)
[2017-07-07 12:00] VITALS: BP 115/60
[2017-07-07] MEDS: Vitamin B12 1000mcg/ml Inj SUBQ SCH (13:09)
--- NOTE | 2017-07-07 14:58 | Infectious Diseases Prog Note ---
Assessment/Plan Problems: (1) Acute UTI Assessment & Plan: due to gram negative rods , await identification and sensitivity , continue cefepime empiric coverage (2) Sepsis Assessment & Plan: due to the above , with possible pyelonephritis, await blood culture and continue cefepime empiric coverage (3) Fever with chills Assessment & Plan: due to the above, continue wide spectrum antibiotics and tylenol (4) BPH (benign prostatic hyperplasia) Assessment & Plan: on flomax, follow up with urologist (5) DM (diabetes mellitus) Assessment & Plan: recommend tight glycemic control to keep blood glucose between 100-140 Subjective Constitutional: Reports: no symptoms HEENT: Reports: no symptoms Respiratory: Reports: no symptoms Breasts: Reports: no symptoms Cardiovascular: Reports: no symptoms Gastrointestinal/Abdominal: Reports: no symptoms Genitourinary: Reports: no symptoms Neurologic: Reports: no symptoms Psychiatric: Reports: no symptoms Skin: Reports: no symptoms Endocrine: Reports: no symptoms Hematologic: Reports: no symptoms Allergies: Coded Allergies: PENICILLINS (Verified Allergy, Unknown, 07/01/16) PIPERACILLIN (Verified Allergy, Unknown, Hives, 10/09/15) TAZOBACTAM (Verified Allergy, Unknown, Hives, 10/09/15) Objective Vital Signs Last 24 Hour Vital Signs Date Time Temp Pulse Resp B/P (MAP) Pulse Ox O2 Delivery O2 Flow Rate FiO2 07/07/17 12:00 97.7 53 20 115/60 95 07/07/17 10:21 121/63 07/07/17 10:21 64 121/63 07/07/17 08:00 98.2 64 20 121/63 92 07/07/17 04:18 93 Room Air 07/07/17 04:18 97.3 60 20 105/51 93 Room Air 07/06/17 20:49 59 99/56 07/06/17 20:00 93 Room Air 07/06/17 19:58 98.1 59 20 99/56 93 Room Air 07/06/17 16:10 98.5 91 20 99/45 94 Nasal Cannula 4.0 07/06/17 15:58 91 99/45 07/06/17 15:30 91 20 99/45 94 Nasal Cannula 4.0 Height (Feet): 5 Height (Inches): 9.00 Weight (Pounds): 180 General Appearance: WD/WN, no acute distress HEENT: normocephalic, atraumatic, anicteric, mucous membranes moist, PERRL Respiratory/Chest: chest wall non-tender, lungs clear, normal breath sounds, no respiratory distress, no accessory muscle use Cardiovascular: normal peripheral pulses, normal rate, regular rhythm, no gallop/murmur, no JVD Abdomen: normal bowel sounds, soft, non tender, no organomegaly, non distended , no mass, no scars Extremities: no cyanosis, no clubbing Skin: no rash, no lesions, no ulcers Neurologic/Psychiatric: alert, oriented x 3, responsive Microbiology Date/Time Source Procedure Growth Status 07/06/17 10:35 Blood Blood Culture - Preliminary NO GROWTH AFTER 24 HOURS Resulted 07/06/17 10:25 Blood Blood Culture - Preliminary NO GROWTH AFTER 24 HOURS Resulted 07/06/17 11:18 Nasal Nares Influenza Types A,B Antigen (KATHIE) - Final Complete 07/06/17 10:30 Urine,Clean Catch Urine Culture - Preliminary Gram Negative Mitchell Resulted Laboratory Tests Test 07/07/17 05:55 White Blood Count 9.9 K/UL (4.8-10.8) # Red Blood Count 4.37 M/UL (4.70-6.10) L Hemoglobin 13.6 G/DL (14.2-18.0) L Hematocrit 40.7 % (42.0-52.0) L Mean Corpuscular Volume 93 FL (80-99) Mean Corpuscular Hemoglobin 31.0 PG (27.0-31.0) Mean Corpuscular Hemoglobin Concent 33.3 G/DL (32.0-36.0) Red Cell Distribution Width 12.8 % (11.6-14.8) Platelet Count 148 K/UL (150-450) L Mean Platelet Volume 7.7 FL (6.5-10.1) Neutrophils (%) (Auto) 83.3 % (45.0-75.0) H Lymphocytes (%) (Auto) 11.1 % (20.0-45.0) L Monocytes (%) (Auto) 4.8 % (1.0-10.0) Eosinophils (%) (Auto) 0.5 % (0.0-3.0) Basophils (%) (Auto) 0.3 % (0.0-2.0) Sodium Level 138 MMOL/L (136-145) Potassium Level 4.3 MMOL/L (3.5-5.1) Chloride Level 101 MMOL/L (98-107) Carbon Dioxide Level 32 MMOL/L (21-32) Anion Gap 6 mmol/L (5-15) Blood Urea Nitrogen 25 mg/dL (7-18) H Creatinine 1.2 MG/DL (0.55-1.30) Estimat Glomerular Filtration Rate mL/min (>60) Glucose Level 137 MG/DL (74-106) H Hemoglobin A1c 6.7 % (4.3-6.0) H Lactic Acid Level 1.00 mmol/L (0.66-2.22) Uric Acid 5.6 MG/DL (2.6-7.2) Calcium Level 8.2 MG/DL (8.5-10.1) L Phosphorus Level 2.7 MG/DL (2.5-4.9) Magnesium Level 1.8 MG/DL (1.8-2.4) Total Bilirubin 0.8 MG/DL (0.2-1.0) Gamma Glutamyl Transpeptidase 60 U/L (5-85) Aspartate Amino Transf (AST/SGOT) 21 U/L (15-37) Alanine Aminotransferase (ALT/SGPT) 20 U/L (12-78) Alkaline Phosphatase 51 U/L (46-116) Troponin I 0.062 ng/mL (0.000-0.056) Pro-B-Type Natriuretic Peptide 1822 pg/mL (0-125) H Total Protein 6.0 G/DL (6.4-8.2) L Albumin 2.8 G/DL (3.4-5.0) L Globulin 3.2 g/dL Albumin/Globulin Ratio 0.9 (1.0-2.7) L Triglycerides Level 54 MG/DL (30-150) Cholesterol Level 120 MG/DL (< 200) LDL Cholesterol 72 mg/dL (<100) HDL Cholesterol 46 MG/DL (40-60) Cholesterol/HDL Ratio 2.6 (3.3-4.4) L Vitamin B12 Level 254 PG/ML (193-986) Folate 8.6 NG/ML (8.6-58.9) Thyroid Stimulating Hormone (TSH) 0.486 uiU/mL (0.358-3.740) Current Medications Medications (Trade) Dose Ordered Sig/Ashley Route PRN Reason Start Time Stop Time Status Last Admin Dose Admin Acetaminophen (Tylenol) 650 mg Q4HR PRN ORAL mod pain- T over 100F 07/06/17 13:15 08/05/17 13:14 Aspirin (ASA) 325 mg DAILY ORAL 07/07/17 11:00 08/06/17 10:59 07/07/17 10:30 Atorvastatin Calcium (Lipitor) 10 mg BEDTIME ORAL 07/07/17 21:00 08/06/17 20:59 Cefepime HCl 2 gm/ Dextrose 55 ml @ 110 mls/hr Q12H IVPB 07/06/17 16:30 07/13/17 16:29 07/07/17 04:19 Cyanocobalamin (Vitamin B12) 1,000 mcg DAILY SUBQ 07/07/17 11:00 07/09/17 09:01 07/07/17 13:09 Diphenhydramine HCl (Benadryl) 25 mg Q6HR PRN ORAL itching 07/06/17 13:15 08/05/17 13:14 07/07/17 03:26 Docusate Sodium (Colace) 100 mg TID ORAL 07/06/17 14:00 08/05/17 13:59 07/07/17 13:08 Ergocalciferol (Drisdol) 50,000 intlu QWEEK ORAL 07/07/17 11:00 08/06/17 10:59 07/07/17 10:30 Heparin Sodium (Porcine) (Heparin 5000 units/ml) 5,000 units EVERY 12 HOURS SUBQ 07/06/17 21:00 08/05/17 20:59 Metoprolol Tartrate (Lopressor) 25 mg Q12HR ORAL 07/06/17 21:00 08/05/17 20:59 07/07/17 10:21 Nitroglycerin (Ntg) 1 patch Q24H TDERMAL 07/07/17 10:00 08/06/17 09:59 07/07/17 10:21 Pantoprazole (Protonix) 40 mg Q12HR ORAL 07/06/17 21:00 08/05/17 20:59 07/07/17 10:20 Sitagliptin Phosphate (Januvia) 50 mg ACBREAKFAST ORAL 07/07/17 06:30 08/06/17 06:29 07/07/17 05:28 Tamsulosin HCl (Flomax) 0.4 mg BID ORAL 07/06/17 18:00 08/05/17 17:59 07/07/17 10:20 Trazodone HCl (Desyrel) 50 mg BEDTIME ORAL 07/06/17 21:00 08/05/17 20:59 07/06/17 20:48 Zolpidem Tartrate (Ambien) 5 mg HSPRN PRN ORAL Insomnia 07/07/17 12:00 07/14/17 11:59 Kevon Montano M.D. Jul 07, 2017 14:58
[2017-07-07 16:00] VITALS: BP 103/60
[2017-07-07 20:37] VITALS: BP 154/86
[2017-07-07] MEDS: TraZODone 50mg tab ORAL SCH (21:17)
[2017-07-07] MEDS: Zolpidem 5mg tab ORAL PRN (22:33)
[2017-07-08] MEDS: sitaGLIPtin 50mg tab ORAL SCH (05:46)
[2017-07-08 07:10] LABS: BASOPHILS % (AUTO) 0.6 % (0.0-2.0); EOSINOPHILS % (AUTO) 2.4 % (0.0-3.0); HEMATOCRIT 41.6 % (42.0-52.0); HEMOGLOBIN 14.1 G/DL (14.2-18.0); LYMPHOCYTES % (AUTO) 30.3 % (20.0-45.0); MEAN CORPUSCULAR VOLUME 91 FL (80-99); MONOCYTES % (AUTO) 9.5 % (1.0-10.0); NEUTROPHILS % (AUTO) 57.2 % (45.0-75.0); PLATELET COUNT 149 K/UL (150-450); RED BLOOD COUNT 4.56 M/UL (4.70-6.10); RED CELL DISTRIBUTION WIDTH 12.7 % (11.6-14.8); WHITE BLOOD COUNT 6.8 K/UL (4.8-10.8)
[2017-07-08 07:30] LABS: ALANINE AMINOTRANSFERASE 15 U/L (12-78); ALBUMIN 2.8 G/DL (3.4-5.0); ALBUMIN/GLOBULIN RATIO 0.8 (1.0-2.7); ALKALINE PHOSPHATASE 53 U/L (46-116); ANION GAP 5 mmol/L (5-15); ASPARTATE AMINO TRANSFERASE 18 U/L (15-37); BILIRUBIN,TOTAL 0.4 MG/DL (0.2-1.0); BLOOD UREA NITROGEN 21 mg/dL (7-18); CALCIUM 8.2 MG/DL (8.5-10.1); CARBON DIOXIDE 31 MMOL/L (21-32); CHLORIDE 103 MMOL/L (98-107); CREATININE 1.3 MG/DL (0.55-1.30); PHOSPHORUS 2.8 MG/DL (2.5-4.9); POTASSIUM 4.1 MMOL/L (3.5-5.1); SODIUM 139 MMOL/L (136-145)
[2017-07-08 07:46] VITALS: BP 130/76
[2017-07-08] MEDS ORDERED: Cefepime 2gm/D5W 110ml IV SCH ×2 (09:00)
[2017-07-08] MEDS: Heparin 5000 units/ml inj SUBQ SCH (09:00)
[2017-07-08] MEDS: Docusate 100mg cap ORAL SCH ×3 (09:57→18:25)
[2017-07-08] MEDS: Metoprolol 25mg tab ORAL SCH ×2 (09:57→21:05)
[2017-07-08] MEDS: Tamsulosin 0.4mg cap ORAL SCH ×2 (09:57→18:25)
[2017-07-08] MEDS: Nitroglycerin Patch 0.2mg/hr TDERMAL SCH (10:08)
[2017-07-08] MEDS: Vitamin B12 1000mcg/ml Inj SUBQ SCH (10:10)
--- NOTE | 2017-07-08 11:32 | General Progress Note ---
Assessment/Plan Status: stable Status Narrative anxious to go home- feels good 1) Acute UTI , high lactic , chamge in [place] on admit : Sepsis urine E coli- BC gram neg (2) DM (diabetes mellitus) (3) BPH (benign prostatic hyperplasia) (4) HTN (hypertension) (5) Hyperlipidemia (6) Trop elevation) Assessment/Plan Plan: PICC line tomorrow then DC on IV Rocephin ASA Beta celine Vit D , B 12 Subjective ROS Limited/Unobtainable: No Constitutional: Reports: other - anxious to go home Allergies: Coded Allergies: PENICILLINS (Verified Allergy, Unknown, 07/01/16) PIPERACILLIN (Verified Allergy, Unknown, Hives, 10/09/15) TAZOBACTAM (Verified Allergy, Unknown, Hives, 10/09/15) Objective Last 24 Hour Vital Signs Date Time Temp Pulse Resp B/P (MAP) Pulse Ox O2 Delivery O2 Flow Rate FiO2 07/08/17 10:08 130/76 07/08/17 09:57 58 130/76 07/08/17 07:46 97.1 58 18 130/76 92 Room Air 07/08/17 04:46 Room Air 07/08/17 00:52 Room Air 07/07/17 21:17 64 07/07/17 21:17 64 154/86 07/07/17 20:51 97.3 07/07/17 20:37 97.3 57 20 154/86 94 Room Air 07/07/17 16:00 97.5 52 20 103/60 96 07/07/17 16:00 Room Air 07/07/17 12:00 Room Air 07/07/17 12:00 97.7 53 20 115/60 95 Intake and Output 07/07/17 07/08/17 19:00 07:00 Intake Total 240 ml 240 ml Balance 240 ml 240 ml Intake Oral 240 ml 240 ml # Voids 3 3 Current Medications Medications (Trade) Dose Ordered Sig/Ashley Route PRN Reason Start Time Stop Time Status Last Admin Dose Admin Acetaminophen (Tylenol) 650 mg Q4HR PRN ORAL mod pain- T over 100F 07/06/17 13:15 08/05/17 13:14 07/07/17 19:52 Aspirin (ASA) 325 mg DAILY ORAL 07/07/17 11:00 08/06/17 10:59 07/08/17 09:56 Atorvastatin Calcium (Lipitor) 10 mg BEDTIME ORAL 07/07/17 21:00 08/06/17 20:59 07/07/17 21:16 Ceftriaxone Sodium 2 gm/ Dextrose 55 ml @ 110 mls/hr ONCE ONCE IVPB 07/08/17 13:00 07/08/17 13:29 Cephalexin (Keflex) 500 mg Q12HR ORAL 07/09/17 09:00 07/16/17 08:59 Cyanocobalamin (Vitamin B12) 1,000 mcg DAILY SUBQ 07/07/17 11:00 07/09/17 09:01 07/08/17 10:10 Diphenhydramine HCl (Benadryl) 25 mg Q6HR PRN ORAL itching 07/06/17 13:15 08/05/17 13:14 07/07/17 03:26 Docusate Sodium (Colace) 100 mg TID ORAL 07/06/17 14:00 08/05/17 13:59 07/08/17 09:57 Metoprolol Tartrate (Lopressor) 25 mg Q12HR ORAL 07/06/17 21:00 08/05/17 20:59 07/08/17 09:57 Nitroglycerin (Ntg) 1 patch Q24H TDERMAL 07/07/17 10:00 08/06/17 09:59 07/08/17 10:08 Pantoprazole (Protonix) 40 mg Q12HR ORAL 07/06/17 21:00 08/05/17 20:59 07/08/17 09:57 Sitagliptin Phosphate (Januvia) 50 mg ACBREAKFAST ORAL 07/07/17 06:30 08/06/17 06:29 07/08/17 05:46 Tamsulosin HCl (Flomax) 0.4 mg BID ORAL 07/06/17 18:00 08/05/17 17:59 07/08/17 09:57 Trazodone HCl (Desyrel) 50 mg BEDTIME ORAL 07/06/17 21:00 08/05/17 20:59 07/07/17 21:17 Zolpidem Tartrate (Ambien) 5 mg HSPRN PRN ORAL Insomnia 07/07/17 12:00 07/14/17 11:59 07/07/17 22:33 Laboratory Tests 07/08/17 05:20: White Blood Count 6.8, Red Blood Count 4.56L, Hemoglobin 14.1L, Hematocrit 41.6L , Mean Corpuscular Volume 91, Mean Corpuscular Hemoglobin 30.8, Mean Corpuscular Hemoglobin Concent 33.8, Red Cell Distribution Width 12.7, Platelet Count 149L, Mean Platelet Volume 8.0, Neutrophils (%) (Auto) 57.2, Lymphocytes ( %) (Auto) 30.3, Monocytes (%) (Auto) 9.5, Eosinophils (%) (Auto) 2.4, Basophils (%) (Auto) 0.6, Sodium Level 139, Potassium Level 4.1, Chloride Level 103, Carbon Dioxide Level 31, Anion Gap 5, Blood Urea Nitrogen 21H, Creatinine 1.3, Estimat Glomerular Filtration Rate , Glucose Level 131H, Calcium Level 8.2L, Phosphorus Level 2.8, Magnesium Level 2.0, Total Bilirubin 0.4, Aspartate Amino Transf (AST/SGOT) 18, Alanine Aminotransferase (ALT/SGPT) 15, Alkaline Phosphatase 53, Troponin I 0.017, C-Reactive Protein, Quantitative 6.1H, Total Protein 6.1L, Albumin 2.8L, Globulin 3.3, Albumin/Globulin Ratio 0.8L Height (Feet): 5 Height (Inches): 9.00 Weight (Pounds): 180 General Appearance: no apparent distress Cardiovascular: normal rate Respiratory/Chest: lungs clear Abdomen: soft Objective no other change LEROY TAN Jul 08, 2017 11:32
[2017-07-08 12:00] VITALS: BP 136/82
[2017-07-08] MEDS ORDERED: Heparin 2000 units/Ns 1000ml INJ PRN (12:15)
[2017-07-08] MEDS ORDERED: Lidocaine 1% Plain 30 ml INJ PRN (12:15)
[2017-07-08] MEDS ORDERED: cefTRIAXone 2 GM in D5W 55 ML IVPB ONE (13:00)
[2017-07-08 16:34] VITALS: BP 143/76
--- NOTE | 2017-07-08 16:42 | Infectious Diseases Prog Note ---
Assessment/Plan Problems: (1) Acute UTI Assessment & Plan: due to E.coli comlicated with sepsis , on cefepime empiric coverage , may switch to ceftriaxon for two more weeks , to treat for sepsis and possible pyelonephritis (2) Sepsis Assessment & Plan: due to gram negative rods most likely E coli , source most likely pyelonephritis, on cefepime empiric coverage, will repeat blood culture to confirm clearance , and treat with ceftriaxone for two more weeks (3) Fever with chills Assessment & Plan: due to the above, continue wide spectrum antibiotics and tylenol (4) BPH (benign prostatic hyperplasia) Assessment & Plan: on flomax, follow up with urologist (5) DM (diabetes mellitus) Assessment & Plan: recommend tight glycemic control to keep blood glucose between 100-140 Subjective Constitutional: Reports: no symptoms HEENT: Reports: no symptoms Respiratory: Reports: no symptoms Breasts: Reports: no symptoms Cardiovascular: Reports: no symptoms Gastrointestinal/Abdominal: Reports: no symptoms Genitourinary: Reports: no symptoms Neurologic: Reports: no symptoms Psychiatric: Reports: no symptoms Skin: Reports: no symptoms Endocrine: Reports: no symptoms Hematologic: Reports: no symptoms Musculoskeletal: Reports: no symptoms Allergies: Coded Allergies: PENICILLINS (Verified Allergy, Unknown, 07/01/16) PIPERACILLIN (Verified Allergy, Unknown, Hives, 10/09/15) TAZOBACTAM (Verified Allergy, Unknown, Hives, 10/09/15) Objective Vital Signs Last 24 Hour Vital Signs Date Time Temp Pulse Resp B/P (MAP) Pulse Ox O2 Delivery O2 Flow Rate FiO2 07/08/17 16:34 97.1 60 20 143/76 94 Room Air 07/08/17 12:00 98.2 58 20 136/82 96 Room Air 07/08/17 10:08 130/76 07/08/17 09:57 58 130/76 07/08/17 07:46 97.1 58 18 130/76 92 Room Air 07/08/17 04:46 Room Air 07/08/17 00:52 Room Air 07/07/17 21:17 64 18 21:17 64 154/86 07/07/17 20:51 97.3 07/07/17 20:37 97.3 57 20 154/86 94 Room Air Height (Feet): 5 Height (Inches): 9.00 Weight (Pounds): 180 General Appearance: WD/WN, no acute distress HEENT: normocephalic, atraumatic, anicteric, mucous membranes moist, PERRL Respiratory/Chest: chest wall non-tender, lungs clear, normal breath sounds, no respiratory distress, no accessory muscle use Cardiovascular: normal peripheral pulses, normal rate, regular rhythm, no gallop/murmur, no JVD Abdomen: normal bowel sounds, soft, non tender, no organomegaly, non distended , no mass, no scars Genitourinary: normal external genitalia Extremities: no cyanosis, no clubbing Skin: no rash, no lesions, no ulcers Neurologic/Psychiatric: alert, oriented x 3, responsive Lymphatic: no neck adenopathy, no groin adenopathy Microbiology Date/Time Source Procedure Growth Status 07/06/17 10:35 Blood Blood Culture - Preliminary Resulted 07/06/17 10:25 Blood Blood Culture - Preliminary Resulted 07/06/17 11:18 Nasal Nares Influenza Types A,B Antigen (KATHIE) - Final Complete 07/06/17 10:30 Urine,Clean Catch Urine Culture - Final Escherichia Coli Complete Laboratory Tests Test 07/08/17 05:20 White Blood Count 6.8 K/UL (4.8-10.8) Red Blood Count 4.56 M/UL (4.70-6.10) L Hemoglobin 14.1 G/DL (14.2-18.0) L Hematocrit 41.6 % (42.0-52.0) L Mean Corpuscular Volume 91 FL (80-99) Mean Corpuscular Hemoglobin 30.8 PG (27.0-31.0) Mean Corpuscular Hemoglobin Concent 33.8 G/DL (32.0-36.0) Red Cell Distribution Width 12.7 % (11.6-14.8) Platelet Count 149 K/UL (150-450) L Mean Platelet Volume 8.0 FL (6.5-10.1) Neutrophils (%) (Auto) 57.2 % (45.0-75.0) Lymphocytes (%) (Auto) 30.3 % (20.0-45.0) Monocytes (%) (Auto) 9.5 % (1.0-10.0) Eosinophils (%) (Auto) 2.4 % (0.0-3.0) Basophils (%) (Auto) 0.6 % (0.0-2.0) Sodium Level 139 MMOL/L (136-145) Potassium Level 4.1 MMOL/L (3.5-5.1) Chloride Level 103 MMOL/L (98-107) Carbon Dioxide Level 31 MMOL/L (21-32) Anion Gap 5 mmol/L (5-15) Blood Urea Nitrogen 21 mg/dL (7-18) H Creatinine 1.3 MG/DL (0.55-1.30) Estimat Glomerular Filtration Rate mL/min (>60) Glucose Level 131 MG/DL (74-106) H Calcium Level 8.2 MG/DL (8.5-10.1) L Phosphorus Level 2.8 MG/DL (2.5-4.9) Magnesium Level 2.0 MG/DL (1.8-2.4) Total Bilirubin 0.4 MG/DL (0.2-1.0) Aspartate Amino Transf (AST/SGOT) 18 U/L (15-37) Alanine Aminotransferase (ALT/SGPT) 15 U/L (12-78) Alkaline Phosphatase 53 U/L (46-116) Troponin I 0.017 ng/mL (0.000-0.056) C-Reactive Protein, Quantitative 6.1 mg/dL (0.00-0.90) H Total Protein 6.1 G/DL (6.4-8.2) L Albumin 2.8 G/DL (3.4-5.0) L Globulin 3.3 g/dL Albumin/Globulin Ratio 0.8 (1.0-2.7) L Current Medications Medications (Trade) Dose Ordered Sig/Ashley Route PRN Reason Start Time Stop Time Status Last Admin Dose Admin Acetaminophen (Tylenol) 650 mg Q4HR PRN ORAL mod pain- T over 100F 07/06/17 13:15 08/05/17 13:14 07/07/17 19:52 Aspirin (ASA) 325 mg DAILY ORAL 07/07/17 11:00 08/06/17 10:59 07/08/17 09:56 Atorvastatin Calcium (Lipitor) 10 mg BEDTIME ORAL 07/07/17 21:00 08/06/17 20:59 07/07/17 21:16 Chlorhexidine Gluconate (Sharmila-Hex 2%) 1 applic DAILY@2000 TOPIC 07/08/17 20:00 08/07/17 19:59 Cyanocobalamin (Vitamin B12) 1,000 mcg DAILY SUBQ 07/07/17 11:00 07/09/17 09:01 07/08/17 10:10 Diphenhydramine HCl (Benadryl) 25 mg Q6HR PRN ORAL itching 07/06/17 13:15 08/05/17 13:14 07/07/17 03:26 Docusate Sodium (Colace) 100 mg TID ORAL 07/06/17 14:00 08/05/17 13:59 07/08/17 15:04 Heparin Sodium/ Sodium Chloride (Heparin 2000 units/Ns 1000ml premix) 2,000 unit ONCE PRN INJ FOR PICC LINE PLACEMENT 07/08/17 12:15 07/09/17 23:59 Lidocaine HCl (Xylocaine 1% 30ml) 30 ml ONCE PRN INJ FOR PICC LINE PLACEMENT 07/08/17 12:15 07/09/17 23:59 Metoprolol Tartrate (Lopressor) 25 mg Q12HR ORAL 07/06/17 21:00 08/05/17 20:59 07/08/17 09:57 Nitroglycerin (Ntg) 1 patch Q24H TDERMAL 07/07/17 10:00 08/06/17 09:59 07/08/17 10:08 Pantoprazole (Protonix) 40 mg Q12HR ORAL 07/06/17 21:00 08/05/17 20:59 07/08/17 09:57 Sitagliptin Phosphate (Januvia) 50 mg ACBREAKFAST ORAL 07/07/17 06:30 08/06/17 06:29 07/08/17 05:46 Tamsulosin HCl (Flomax) 0.4 mg BID ORAL 07/06/17 18:00 08/05/17 17:59 07/08/17 09:57 Trazodone HCl (Desyrel) 50 mg BEDTIME ORAL 07/06/17 21:00 08/05/17 20:59 07/07/17 21:17 Zolpidem Tartrate (Ambien) 5 mg HSPRN PRN ORAL Insomnia 07/07/17 12:00 07/14/17 11:59 07/07/17 22:33 Kevon Montano M.D. Jul 08, 2017 16:42
[2017-07-08] MEDS ORDERED: Dyna-Hex 2% Top Sol 2oz TOPIC SCH (20:00)
[2017-07-08 20:32] VITALS: BP 176/94
[2017-07-08] MEDS: Zolpidem 5mg tab ORAL PRN (21:05)
[2017-07-08] MEDS: TraZODone 50mg tab ORAL SCH (22:22)
[2017-07-08 22:26] VITALS: BP 157/91
[2017-07-09] MEDS: sitaGLIPtin 50mg tab ORAL SCH (06:15)
[2017-07-09] MEDS ORDERED: Cephalexin 500mg cap ORAL SCH (09:00)
[2017-07-09 09:10] VITALS: BP 138/78
[2017-07-09] MEDS: Tamsulosin 0.4mg cap ORAL SCH (09:31)
[2017-07-09] MEDS: Docusate 100mg cap ORAL SCH ×2 (09:31→13:25)
[2017-07-09] MEDS: Metoprolol 25mg tab ORAL SCH (09:31)
[2017-07-09] MEDS: Vitamin B12 1000mcg/ml Inj SUBQ SCH (09:31)
[2017-07-09] MEDS ORDERED: cefTRIAXone 2 GM in D5W 55 ML IVPB ONE (11:00)
[2017-07-09 11:02] VITALS: BP 138/78
[2017-07-09] MEDS: Nitroglycerin Patch 0.2mg/hr TDERMAL SCH (11:02)
--- NOTE | 2017-07-09 14:55 | General Progress Note ---
Assessment/Plan Status: stable Status Narrative 1) Acute UTI , high lactic , chamge in [place] on admit : Sepsis urine E coli- BC gram neg (2) DM (diabetes mellitus) (3) BPH (benign prostatic hyperplasia) (4) HTN (hypertension) (5) Hyperlipidemia (6) Trop elevation) (7) Acute Encephalopathy on admit Assessment/Plan Plan: PICC line today and DC on 12 more days of IV Rocephin ASA Beta celine Vit D , B 12 Subjective ROS Limited/Unobtainable: No Allergies: Coded Allergies: PENICILLINS (Verified Allergy, Unknown, 07/01/16) PIPERACILLIN (Verified Allergy, Unknown, Hives, 10/09/15) TAZOBACTAM (Verified Allergy, Unknown, Hives, 10/09/15) Objective Last 24 Hour Vital Signs Date Time Temp Pulse Resp B/P (MAP) Pulse Ox O2 Delivery O2 Flow Rate FiO2 07/09/17 11:02 138/78 07/09/17 09:31 63 138/78 07/09/17 09:10 97.3 63 18 138/78 Room Air 07/09/17 04:06 Room Air 07/09/17 00:37 Room Air 07/08/17 22:26 59 157/91 07/08/17 22:07 96.1 07/08/17 21:05 62 176/94 07/08/17 20:32 96.1 62 19 176/94 95 Room Air 07/08/17 16:34 97.1 60 20 143/76 94 Room Air Intake and Output 07/08/17 07/09/17 19:00 07:00 Intake Total 360 ml 360 ml Balance 360 ml 360 ml Intake Oral 360 ml 360 ml # Voids 4 3 Height (Feet): 5 Height (Inches): 9.00 Weight (Pounds): 180 General Appearance: no apparent distress Cardiovascular: normal rate Respiratory/Chest: lungs clear Abdomen: soft Objective no other change LEROY TAN Jul 09, 2017 14:55
[2017-07-09] MEDS ORDERED: LOPRESSOR25 M1 ORAL (14:58)
[2017-07-09] MEDS ORDERED: NTG1 PATC2 TDERMAL (14:58)
--- NOTE | 2017-07-09 15:00 | Discharge Instructions ---
Discharge Instructions Discharge Instructions Follow up with: fu with PMD and Urologist Special Instructions home health [facility] [phone] 12 days of IV Rocephin 2grams / day For Congestive Heart Failure Reminder Report to your physician any weight gain of 5 pounds or more in one week. LEROY TAN Jul 09, 2017 15:00
--- NOTE | 2017-07-09 15:06 | Infectious Diseases Prog Note ---
Assessment/Plan Problems: (1) Acute UTI Assessment & Plan: due to E.coli complicated with sepsis , on ceftriaxon for two weeks total to treat for sepsis and possible pyelonephritis (2) Sepsis Assessment & Plan: due to gram negative rods most likely E coli , source most likely pyelonephritis, on ceftriaxon empiric coverage, repeated blood culture to confirm clearance is pending , and treat with ceftriaxone for two more weeks starting from the clearance date (3) Fever with chills Assessment & Plan: resolved, due to the above, continue antibiotics and tylenol (4) BPH (benign prostatic hyperplasia) Assessment & Plan: on flomax, follow up with urologist for further evaluation and management (5) DM (diabetes mellitus) Assessment & Plan: recommend tight glycemic control to keep blood glucose between 100-140 Subjective Constitutional: Reports: no symptoms HEENT: Reports: no symptoms Respiratory: Reports: no symptoms Breasts: Reports: no symptoms Cardiovascular: Reports: no symptoms Gastrointestinal/Abdominal: Reports: no symptoms Genitourinary: Reports: no symptoms Neurologic: Reports: no symptoms Psychiatric: Reports: no symptoms Skin: Reports: no symptoms Endocrine: Reports: no symptoms Hematologic: Reports: no symptoms Musculoskeletal: Reports: no symptoms Allergies: Coded Allergies: PENICILLINS (Verified Allergy, Unknown, 07/01/16) PIPERACILLIN (Verified Allergy, Unknown, Hives, 10/09/15) TAZOBACTAM (Verified Allergy, Unknown, Hives, 10/09/15) Objective Vital Signs Last 24 Hour Vital Signs Date Time Temp Pulse Resp B/P (MAP) Pulse Ox O2 Delivery O2 Flow Rate FiO2 07/09/17 11:02 138/78 07/09/17 09:31 63 138/78 07/09/17 09:10 97.3 63 18 138/78 Room Air 07/09/17 04:06 Room Air 07/09/17 00:37 Room Air 07/08/17 22:26 59 157/91 07/08/17 22:07 96.1 07/08/17 21:05 62 176/94 07/08/17 20:32 96.1 62 19 176/94 95 Room Air 07/08/17 16:34 97.1 60 20 143/76 94 Room Air Height (Feet): 5 Height (Inches): 9.00 Weight (Pounds): 180 General Appearance: WD/WN, no acute distress HEENT: normocephalic, atraumatic, anicteric, mucous membranes moist, PERRL Respiratory/Chest: chest wall non-tender, lungs clear, normal breath sounds, no respiratory distress, no accessory muscle use Cardiovascular: normal peripheral pulses, normal rate, regular rhythm, no gallop/murmur, no JVD Abdomen: normal bowel sounds, soft, non tender, no organomegaly, non distended , no mass, no scars Extremities: no cyanosis, no clubbing Skin: no rash, no lesions, no ulcers Neurologic/Psychiatric: alert, oriented x 3, responsive Lymphatic: no neck adenopathy, no groin adenopathy Current Medications Medications (Trade) Dose Ordered Sig/Ashley Route PRN Reason Start Time Stop Time Status Last Admin Dose Admin Acetaminophen (Tylenol) 650 mg Q4HR PRN ORAL mod pain- T over 100F 07/06/17 13:15 08/05/17 13:14 07/08/17 21:08 Aspirin (ASA) 325 mg DAILY ORAL 07/07/17 11:00 08/06/17 10:59 07/09/17 09:31 Atorvastatin Calcium (Lipitor) 10 mg BEDTIME ORAL 07/07/17 21:00 08/06/17 20:59 07/08/17 21:05 Chlorhexidine Gluconate (Sharmila-Hex 2%) 1 applic DAILY@2000 TOPIC 07/08/17 20:00 08/07/17 19:59 Diphenhydramine HCl (Benadryl) 25 mg Q6HR PRN ORAL itching 07/06/17 13:15 08/05/17 13:14 07/07/17 03:26 Docusate Sodium (Colace) 100 mg TID ORAL 07/06/17 14:00 08/05/17 13:59 07/09/17 13:25 Heparin Sodium/ Sodium Chloride (Heparin 2000 units/Ns 1000ml premix) 2,000 unit ONCE PRN INJ FOR PICC LINE PLACEMENT 07/08/17 12:15 07/09/17 23:59 Lidocaine HCl (Xylocaine 1% 30ml) 30 ml ONCE PRN INJ FOR PICC LINE PLACEMENT 07/08/17 12:15 07/09/17 23:59 Metoprolol Tartrate (Lopressor) 25 mg Q12HR ORAL 07/06/17 21:00 08/05/17 20:59 07/09/17 09:31 Nitroglycerin (Ntg) 1 patch Q24H TDERMAL 07/07/17 10:00 08/06/17 09:59 07/09/17 11:02 Pantoprazole (Protonix) 40 mg Q12HR ORAL 07/06/17 21:00 08/05/17 20:59 07/09/17 09:31 Sitagliptin Phosphate (Januvia) 50 mg ACBREAKFAST ORAL 07/07/17 06:30 08/06/17 06:29 07/09/17 06:15 Tamsulosin HCl (Flomax) 0.4 mg BID ORAL 07/06/17 18:00 08/05/17 17:59 07/09/17 09:31 Trazodone HCl (Desyrel) 50 mg BEDTIME ORAL 07/06/17 21:00 08/05/17 20:59 07/08/17 22:22 Zolpidem Tartrate (Ambien) 5 mg HSPRN PRN ORAL Insomnia 07/07/17 12:00 07/14/17 11:59 07/08/17 21:05 Kevon Montano M.D. Jul 09, 2017 15:06
--- NOTE | 2017-07-09 15:30 | History and Physical Report ---
DATE OF ADMISSION: 07/06/2017 HISTORY OF PRESENT ILLNESS: The patient is an 87-year-old male who lives at home and developed shaking chills and lethargy with questionable flank pain, came into emergency room and after initial evaluation, is being admitted with a diagnosis of urinary tract infection possible pyelonephritis. PAST MEDICAL HISTORY: Significant for obesity, type 2 diabetes, osteoarthritis, BPH, and hypertension. The patient had bouts of UTI in the past. MEDICATIONS: The patient take includes a blood pressure medication, statin, aspirin, Januvia and medications for BPH. ALLERGIES: Penicillin and Zosyn. PHYSICAL EXAMINATION: GENERAL: The patient is seen in the emergency room twice. First time, the patient was very lethargic. For the second time, after receiving 1 dose of Rocephin and some IV fluids, the patient perked up, however spiked to 102 of fever. HEENT: Head is normocephalic. Sclerae are nonicteric. NECK: Supple. Throat is clear. LUNGS: No wheeze. No rhonchi. HEART: Regular. Slightly tachycardic. ABDOMEN: Obese and soft. Bowel sounds present. EXTREMITIES: Lower extremities known to trace edema. CENTRAL NERVOUS SYSTEM: The patient is alert and oriented, however, slow. LABORATORY DATA: RBCs 30, WBCs 20, and 3+ leukocyte esterase in the urine. Electrolytes normal. BUN and creatinine are normal. Glucose 156 and lactic acid 2.4, repeat one 3 hours later is 2.3. WBC 6 and hemoglobin 15.8. IMPRESSION: 1. Sepsis. 2. Urinary tract infection. 3. Diabetes. 4. Benign prostatic hypertrophy. 5. Hypertension. 6. Hyperlipemia. PLAN: The patient initially was started on Rocephin. Per advice of Dr. Montano it is now being changed to Ceftin. We will continue on aspirin, Benadryl, stool softeners, metoprolol, Protonix, Januvia, Flomax and trazodone. Slow hydration will be implemented. According to how the patient's condition evolves, we will make the proper changes in our future management. Caio Paige M.D. DR: KATARINA JOB#: [id number] CC:
--- NOTE | 2017-07-09 15:33 | Pre-Procedure Note/Attestation ---
Pre-Procedure Note/Attestation Complete Prior to Procedure Planned Procedure: not applicable Procedure Narrative: PICC Indications for Procedure Pre-Operative Diagnosis: needing IV access Attestation Consent obtained by the primary team. This was confirmed prior to the procedure. Standard preprocedure timeout performed. I attest that I re-evaluated the patient just prior to the surgery and that there has been no change in the patient's H&P, except as documented below: Ramiro Parker M.D. Jul 09, 2017 15:33
--- NOTE | 2017-07-09 15:39 | Diagnostic Imaging Report ---
Indications: Needs long-term IV access Technique: Informed consent confrimed prior to the procedure. Ultrasound confirms patent compressible basilic vein. Total sterile technique, including sterile probe cover and sterile gel, hat, mask,, sterile gown, large sterile drape, and preparation with 2% chlorhexidine utilized. Local anesthesia with 1% lidocaine. Under real-time ultrasound guidance, puncture the basilic vein using 21-gauge needle, documented and archived, passage 0.018 guidewire under direct fluoroscopy, which was used to determine appropriate catheter length, exchange for 5 Ug[place]an peel-away sheath. 5 Ugandan dual-lumen power PICC cut to 40 cm. It was inserted through the peel-away sheath. Peel-away sheath and guidewire removed. Catheter fixed to the skin. Both catheter ports aspirated and flushed. Patient tolerated procedure well, without immediate complication. Digital radiograph documents satisfactory catheter tip position, at the cavoatrial junction. Total fluoroscopy time 0.1 minutes. Total dose area product 34 dGycm2 Impression: Successful placement of 5 Ugandan double-lumen PICC under sonographic and fluoroscopic guidance, as described above.
[2017-07-09] MEDS ORDERED: NS 275ml ONE (17:07)
[2017-07-09] MEDS ORDERED: Tubing IV Secondary IV ONE (17:07)
--- NOTE | 2017-07-10 14:35 | Discharge Summary ---
Discharge Summary Hospital Course Date of Admission Jul 06, 2017 at 12:15 Date of Discharge Jul 09, 2017 at 17:32 Admitting Diagnosis UROSEPSIS HPI Christa Yu is a 87 year old male who was admitted on Jul 06, 2017 at 12 :15 for Urosepsis Hospital Course dc summary #[id number] Discharge Medications New Medications: Metoprolol Tartrate (Metoprolol Tartrate) 25 Mg Tablet 25 MG ORAL Q12HR for 30 Days, TAB Nitroglycerin (Nitroglycerin Patch) 1 Each Patch.td24 1 PATCH TDERMAL Q24H for 30 Days, PATCH Continued Medications: Aspirin* (Aspir 81*) 81 Mg Tablet.dr 81 MG ORAL DAILY, TAB Dexlansoprazole (Dexilant) 60 Mg Cap.dr.mp 60 MG ORAL PRN, CAP Docusate Sodium* (Colace*) 100 Mg Capsule 100 MG ORAL TID for 30 Days, CAP Dutasteride (Avodart) 0.5 Mg Capsule 0.5 MG ORAL DAILY, CAP Rosuvastatin Calcium (Crestor) 10 Mg Tab 10 MG ORAL DAILY Silodosin (Rapaflo) 8 Mg Capsule 8 MG ORAL DAILY, CAP Sitagliptin (Januvia) 50 Mg Tab 50 MG ORAL ACBREAKFAST for 30 Days, TAB Trazodone Hcl (Desyrel) 50 Mg Tab 50 MG ORAL BEDTIME for 30 Days, TAB Zolpidem Tartrate* (Ambien*) 5 Mg Tablet 5 MG ORAL BEDTIME PRN for Insomnia, TAB Discharge Condition Upon Discharge: stable Discharge Disposition Patient was discharged to Home with services Discharge Diagnoses: Discharge Instructions Discharge Instructions Follow up with: fu with PMD and Urologist Special Instructions I have been assigned to complete a D/C Summary on this account. I was not involved in the patient management Danielle Wood NP (Vanchtein) Jul 10, 2017 14:35
--- NOTE | 2017-07-12 10:15 | Discharge Summary 2 SIG ---
DATE OF ADMISSION: 07/06/2017 DATE OF DISCHARGE: 07/09/2017 REASON FOR ADMISSION: 87-year-old male, who lives at home, with past medical history of diabetes and hypertension, presented with lethargy, shaking chills, and flank pain to emergency department for evaluation. After initial evaluation, he was admitted with diagnosis of urinary tract infection and possible pyelonephritis. HOSPITAL COURSE: The patient was admitted and started on intravenous antibiotics. ID consult was requested. The patient was continued on home medications. Blood sugar was managed with Januvia. Blood pressure was managed with beta-celine. The patient was on Avodart and Flomax for BPH, statin was continued. The patient started on gentle IV hydration. Urine culture revealed E coli. Blood culture revealed E coli. ID specialist recommended two weeks of antibiotics after blood culture negative. Blood culture were negative on 07/08/2017. The patient was discharged on 07/09/2017. The patient was placed PICC line prior to discharge to continue IV antibiotic for additional 12 days at home. Repeated urine culture were negative as well as the blood culture. Home health was arranged. The patient was noted to have elevated troponin for one single episode with mild elevation- 0.062, possibly due to the demand ischemia. No cardiac complaints. Blood sugar was stable. Hemoglobin A1c -6.7, at goal. Repeated troponin negative. Lipid panel stable. Blood pressure stable. The patient was stable for discharge home with home health services for IV antibiotics. FINAL DIAGNOSES: 1. Sepsis with bacteremia with Escherichia coli. 2. Escherichia coli urinary tract infection. 3. Acute encephalopathy likely secondary to sepsis. 4. Elevated troponin. 5. Diabetes mellitus. 6. Hypertension. 7. Hyperlipidemia. 8. Benign prostatic hyperplasia. DISCHARGE MEDICATIONS: See medication reconciliation list. DISCHARGE INSTRUCTIONS: The patient was discharged home with home health services for IV antibiotics. Follow up with primary medical doctor. Caio Paige M.D. I have been assigned to dictate discharge summary on this account and I was not involved in the patient's management. Danielle MarlowChato jorge DR: LUISA JOB#: [id number] CC: BETI
--- NOTE | 2017-07-18 17:56 | Cardiology Report ---
APPROVED REPORT EKG Measurement Heart [id number] Normal sinus rhythm Right bundle branch block Left anterior fascicular block Bifascicular block Septal infarct, age undetermined Abnormal ECG
== END 2017-07-09 17:32 | disposition home health service (06) | DRG 871 ==
LOC: EDSEX 10:06 → EDUNIT# 10:06 → EMR 10:36 → 2E 12:15 → EDBEDREQ 12:53 → 4W 15:08
PROC: 02HV33Z Insertion of Infusion Device into Superior Vena Cava, Percutaneous Approach (ICD-10-PCS; principal; 2017-07-09)
DX: A41.9 Sepsis, unspecified organism (principal); G93.41 Metabolic encephalopathy; N39.0 Urinary tract infection, site not specified; E11.9 Type 2 diabetes mellitus without complications; I10 Essential (primary) hypertension; B96.20 Unspecified Escherichia coli [E. coli] as the cause of diseases classified elsewhere; N40.0 Benign prostatic hyperplasia without lower urinary tract symptoms; E78.5 Hyperlipidemia, unspecified; Z88.1 Allergy status to other antibiotic agents; Z88.8 Allergy status to other drugs, medicaments and biological substances
CPT/HCPCS: 36415; 36569; 76937; 80053; 80061; 81003; 82607; 82746; 82962; 82977; 83036; 83605; 83690; 83735; 83880; 84100; 84443; 84484; 84550; 85007; 85025; 86140; 86710; 87040; 87086; 87181; 93005; 99285

== ENCOUNTER 2017-07-26 14:56 | Emergency (ER) | payer MEDICARE ==
[~2017-07-26] VITALS: Ht 175.3 cm; Wt 90.7 kg
[~2017-07-26 14:56] MED LIST changes: +LOPRESSOR25 M1 ORAL; +NTG1 PATC2 TDERMAL
--- NOTE | 2017-07-26 15:13 | Emergency Room Report ---
History of Present Illness General Chief Complaint: Upper Extremity Injury Source: Patient Present Illness HPI 87yo M sent by systems integration analyst for swollen right arm s/p PICC line remove 5 days ago Patient denies chest nikolay, fevers, chills, shortness of breath, syncope He reports the arm is painful and swollen, otherwise has no complaints Allergies: Coded Allergies: PENICILLINS (Verified Allergy, Unknown, 07/01/16) PIPERACILLIN (Verified Allergy, Unknown, Hives, 10/09/15) TAZOBACTAM (Verified Allergy, Unknown, Hives, 10/09/15) Patient History Past Medical History: see triage record Reviewed Nursing Documentation: PMH: Agreed, PSxH: Agreed Nursing Documentation-PMH Past Medical History: No History, Except For Hx Cardiac Problems: Yes - RBBB, PNA Hx Hypertension: Yes Hx Pacemaker: No Hx Asthma: No Hx COPD: No Hx Diabetes: Yes Hx Neurological Problems: No Hx Cerebrovascular Accident: No Hx Seizures: No Review of Systems All Other Systems: negative except mentioned in HPI Physical Exam Vital Signs Date Time Temp Pulse Resp B/P (MAP) Pulse Ox O2 Delivery O2 Flow Rate FiO2 07/26/17 14:57 98.2 66 18 132/82 91 Room Air Sp02 EP Interpretation: reviewed, normal - slightly low O2 sat but patient not with SOB or resp distress General Appearance: no apparent distress, alert, non-toxic Head: normocephalic Eyes: bilateral eye normal inspection, bilateral eye PERRL, bilateral eye EOMI ENT: normal ENT inspection, hearing grossly normal, normal pharynx, no angioedema, normal voice, moist mucus membranes Neck: normal inspection, full range of motion, supple, supple/symm/no masses Respiratory: chest non-tender, lungs clear, normal breath sounds, chest symmetrical, palpation of chest normal Cardiovascular #1: normal peripheral pulses, regular rate, rhythm Cardiovascular #2: 2+ radial (R), 2+ radial (L) Gastrointestinal: normal inspection, non tender, soft, no mass, no guarding, no rebound Rectal: deferred Genitourinary: normal inspection, no CVA tenderness Musculoskeletal: back normal, gait/station normal, normal range of motion, non- tender, no calf tenderness, swelling - RUE with edema diffusely from mid biceps distally to hand, mild diffuse erythema but no warmth and minimally tender Neurologic: alert, responsive, soil surveyor III-XII nml as tested, motor strength/tone normal, sensory intact, speech normal Psychiatric: judgement/insight normal, memory normal, mood/affect normal, no suicidal/homicidal ideation Skin: normal color, no rash, warm/dry, normal turgor Lymphatic: no adenopathy - no brachial or axillary LAD Medical Decision Making Diagnostic Impression: Primary Impression: DVT (deep venous thrombosis) Additional Impression: DVT of axillary vein, acute right ER Course 87-year-old male with recent right upper extremity PICC line Found to have right upper extremity DVT involving basilic vein axillary vein, as well as entire right internal jugular system Currently patient is not having symptoms of a PE such as chest pain, tachycardia , syncope, or shortness of breath I discussed this with Dr. Paige his systems integration analyst and he spoke with the patient's son They want to treat patient with eliquis PO one dose at 10mg here, then discharge Dr. Paige will write the prescription for all subsequent doses per his request, as I offered to do so but he specifically told me he would do this. Patient will be dc'd after his one dose of eliquis here with excellent f/u with his systems integration analyst and return for CP, SOB, syncope, palpitations Rhythm Strip Diag. Results Rhythm Strip Time: 17:31 EP Interpretation: yes Rate: 70 Rhythm: NSR, no PVC's, no ectopy CT/MRI/US Diagnostic Results CT/MRI/US Diagnostic Results : Imaging Test Ordered: RUE venous duplex Impression + for acute jugular vein DVT and basilic vein/axillary vein DVT Last Vital Signs Date Time Temp Pulse Resp B/P (MAP) Pulse Ox O2 Delivery O2 Flow Rate FiO2 07/26/17 14:57 98.2 66 18 132/82 91 Room Air Status: unchanged Condition: Stable YRN TABOR M.D Jul 26, 2017 15:13
[2017-07-26 16:14] LABS: BASOPHILS % (AUTO) 1.3 % (0.0-2.0); EOSINOPHILS % (AUTO) 2.8 % (0.0-3.0); HEMATOCRIT 42.8 % (42.0-52.0); HEMOGLOBIN 14.9 G/DL (14.2-18.0); LYMPHOCYTES % (AUTO) 37.8 % (20.0-45.0); MEAN CORPUSCULAR VOLUME 92 FL (80-99); MONOCYTES % (AUTO) 9.4 % (1.0-10.0); NEUTROPHILS % (AUTO) 48.8 % (45.0-75.0); PLATELET COUNT 160 K/UL (150-450); RED BLOOD COUNT 4.68 M/UL (4.70-6.10); RED CELL DISTRIBUTION WIDTH 12.1 % (11.6-14.8); WHITE BLOOD COUNT 6.3 K/UL (4.8-10.8)
[2017-07-26 16:23] LABS: ANION GAP 4 mmol/L (5-15); BLOOD UREA NITROGEN 18 mg/dL (7-18); CALCIUM 9.1 MG/DL (8.5-10.1); CARBON DIOXIDE 32 MMOL/L (21-32); CHLORIDE 102 MMOL/L (98-107); CREATININE 0.9 MG/DL (0.55-1.30); POTASSIUM 4.3 MMOL/L (3.5-5.1); SODIUM 137 MMOL/L (136-145)
[2017-07-26 17:11] VITALS: BP 145/76
[2017-07-26] MEDS ORDERED: Eliquis 2.5mg tablet ORAL ONE (17:45)
[2017-07-26 19:20] VITALS: BP 148/79
--- NOTE | 2017-07-31 13:14 | Diagnostic Imaging Report ---
APPROVED REPORT CPT Code: 74426 Present Symptoms Upper Extremity Pain: Right Comments: Recent PICC line removed R/O DVT 2D Evaluation UPPER EXTREMITY: Imaging reveals acute thrombus in the mid-distal internal jugular, subclavian, axillary, one of brachial and ulnar veins. Remainder of the deep venous system is within normal limits. The basilic vein is thrombosed. The cephalic vein is within normal limits. DR. Espinoza was informed at 17:25 hours.
== END 2017-07-26 19:20 | disposition home or self-care (01) ==
LOC: EMR 15:00
DX: I82.621 Acute embolism and thrombosis of deep veins of right upper extremity (principal); Z88.0 Allergy status to penicillin; I10 Essential (primary) hypertension
CPT/HCPCS: 36415; 80048; 85025; 93971; 99284

== ENCOUNTER 2017-08-20 16:49 | Inpatient (IN) | payer MEDICARE, OTHER ==
[~2017-08-20] VITALS: Ht 175.3 cm; Wt 88.5 kg
--- NOTE | 2017-08-20 17:40 | Emergency Room Report ---
History of Present Illness General Chief Complaint: General Complaint Source: Patient (Be Contreras) Present Illness HPI 87 yo male patient presents to ER complaining of generalized chills and weakness since this morning. Patient was instructed by primary care provider to report to ER. Patient rin was seen in ER one month ago for DVT. Denies hx of sick contacts. Patient denies fever, chest pain, SOB, diarrhea, nausea, vomiting, abdominal pain. Denies NGUYEN, vision changes, pain with urination, difficulty urinating. Patient was sent to ER after speaking on the phone with Dr. Paige. (Be Contreras) Allergies: Coded Allergies: PENICILLINS (Verified Allergy, Unknown, 07/01/16) PIPERACILLIN (Verified Allergy, Unknown, Hives, 10/09/15) TAZOBACTAM (Verified Allergy, Unknown, Hives, 10/09/15) Patient History Past Medical History: see triage record Reviewed Nursing Documentation: PMH: Agreed, PSxH: Agreed (Be Contreras) Nursing Documentation-PMH Past Medical History: No History, Except For Hx Cardiac Problems: Yes - RBBB, PNA Hx Hypertension: Yes Hx Pacemaker: No Hx Asthma: No Hx COPD: No Hx Diabetes: Yes Hx Neurological Problems: No Hx Cerebrovascular Accident: No Hx Seizures: No (Be Contreras) Physical Exam Vital Signs Date Time Temp Pulse Resp B/P (MAP) Pulse Ox O2 Delivery O2 Flow Rate FiO2 08/20/17 17:00 98.7 72 23 154/80 95 Room Air 98.8 (Be Contreras) Medical Decision Making PA Attestation Dr. Hussein is my supervising Physician whom patient management has been discussed with. (Be Contreras) ER Course Dr. Hussein spoke with Dr. Gray. IV abx in ER Patient beginning to show signs of chills. Patient will be admitted. (Be Contreras) ER Course 87-year-old male found to have UTI Lives by himself, feeling weakness and chills Found to be febrile, Tylenol given Gentamicin given as patient is allergic to penicillins, patient and friend at bedside state that he had rash and shortness of breath Urine culture checked from previous culture in June, sensitive to gentamicin Endorse the patient to Dr. Fam (Anna Hussein M.D.) Last Vital Signs Date Time Temp Pulse Resp B/P (MAP) Pulse Ox O2 Delivery O2 Flow Rate FiO2 08/20/17 17:00 98.7 72 23 154/80 95 Room Air 98.8 (Be Contreras) Disposition: ADMITTED INPATIENT Be Contreras Aug 20, 2017 17:40 Anna Hussein M.D. Aug 20, 2017 20:46
[2017-08-20 18:54] VITALS: BP 144/76
[2017-08-20 18:59] LABS: APPEARANCE,URINE CLEAR; BILIRUBIN, URINE NEGATIVE (NEGATIVE); COLOR,URINE PALE YELLOW; GLUCOSE, URINE (UA) NEGATIVE (NEGATIVE); KETONES,URINE NEGATIVE (NEGATIVE); LEUKOCYTE ESTERASE ,URINE 2+ (NEGATIVE); NITRITE,URINE POSITIVE (NEGATIVE); PH,URINE 6.5 (4.5-8.0); PROTEIN,URINE 2+ (NEGATIVE); UROBILINOGEN,URINE NORMAL MG/DL (0.0-1.0)
[2017-08-20 19:00] LABS: HEMATOCRIT 45.5 % (42.0-52.0); HEMOGLOBIN 15.3 G/DL (14.2-18.0); MEAN CORPUSCULAR VOLUME 92 FL (80-99); PLATELET COUNT 120 K/UL (150-450); RED BLOOD COUNT 4.95 M/UL (4.70-6.10)
[2017-08-20 19:02] LABS: ANION GAP 7 mmol/L (5-15); BLOOD UREA NITROGEN 17 mg/dL (7-18); CALCIUM 9.4 MG/DL (8.5-10.1); CARBON DIOXIDE 29 MMOL/L (21-32); CHLORIDE 101 MMOL/L (98-107); POTASSIUM 4.7 MMOL/L (3.5-5.1); SODIUM 137 MMOL/L (136-145)
[2017-08-20 19:07] LABS: ALANINE AMINOTRANSFERASE 17 U/L (12-78); ALBUMIN 3.5 G/DL (3.4-5.0); ALBUMIN/GLOBULIN RATIO 1.1 (1.0-2.7); ALKALINE PHOSPHATASE 54 U/L (46-116); ASPARTATE AMINO TRANSFERASE 22 U/L (15-37); BILIRUBIN,TOTAL 0.8 MG/DL (0.2-1.0)
[2017-08-20] MEDS ORDERED: cefTRIAXone 2 GM in NS 55 ML IVPB ONE (19:45)
[2017-08-20] MEDS ORDERED: Gentamicin inj 120 MG in NS 110 ML IVPB ONE (20:15)
[2017-08-20 20:41] VITALS: BP 157/76
[2017-08-20] MEDS ORDERED: Acetaminophen 500mg (ES) tab ORAL ONE (20:45)
[2017-08-20] MEDS ORDERED: Zolpidem 5mg tab ORAL PRN (21:45)
--- NOTE | 2017-08-20 21:54 | History & Physical ---
History and Physical History & Physicial uti chills fever bacteremia dm bph shaquille # [id number] LEROY TAN 5, 2018 21:54
[2017-08-20 22:11] VITALS: BP 116/66
[2017-08-20 22:50] VITALS: BP 102/60
[2017-08-20] MEDS: Tamsulosin 0.4mg cap ORAL SCH (23:13)
[2017-08-20] MEDS: Nitroglycerin Patch 0.2mg/hr TDERMAL SCH (23:46)
[2017-08-21 04:00] VITALS: BP 91/56
[2017-08-21] MEDS: sitaGLIPtin 50mg tab ORAL SCH (06:16)
[2017-08-21 07:51] LABS: BASOPHILS % (AUTO) 0.5 % (0.0-2.0); EOSINOPHILS % (AUTO) 0.1 % (0.0-3.0); HEMATOCRIT 40.3 % (42.0-52.0); HEMOGLOBIN 13.7 G/DL (14.2-18.0); LYMPHOCYTES % (AUTO) 14.6 % (20.0-45.0); MEAN CORPUSCULAR VOLUME 93 FL (80-99); MONOCYTES % (AUTO) 6.2 % (1.0-10.0); NEUTROPHILS % (AUTO) 78.6 % (45.0-75.0); PLATELET COUNT 116 K/UL (150-450); RED BLOOD COUNT 4.35 M/UL (4.70-6.10); RED CELL DISTRIBUTION WIDTH 12.6 % (11.6-14.8); WHITE BLOOD COUNT 10.4 K/UL (4.8-10.8)
[2017-08-21 08:00] VITALS: BP 105/65
[2017-08-21 08:30] VITALS: BP 105/65
[2017-08-21 08:35] LABS: ALANINE AMINOTRANSFERASE 20 U/L (12-78); ALBUMIN 2.8 G/DL (3.4-5.0); ALKALINE PHOSPHATASE 40 U/L (46-116); ANION GAP 4 mmol/L (5-15); ASPARTATE AMINO TRANSFERASE 20 U/L (15-37); BILIRUBIN,TOTAL 1.2 MG/DL (0.2-1.0); BLOOD UREA NITROGEN 16 mg/dL (7-18); CALCIUM 8.2 MG/DL (8.5-10.1); CARBON DIOXIDE 32 MMOL/L (21-32); CHLORIDE 103 MMOL/L (98-107); CHOLESTEROL 114 MG/DL (< 200); CREATINE KINASE 125 U/L (26-308); CREATININE 1.1 MG/DL (0.55-1.30); GAMMA GLUTAMYL TRANSPEPTIDASE 61 U/L (5-85); HDL CHOLESTEROL 45 MG/DL (40-60); PHOSPHORUS 3.8 MG/DL (2.5-4.9); POTASSIUM 4.4 MMOL/L (3.5-5.1); SODIUM 139 MMOL/L (136-145); TRIGLYCERIDES 56 MG/DL (30-150)
[2017-08-21] MEDS: Heparin 5000 units/ml inj SUBQ SCH ×2 (09:00→20:28)
[2017-08-21] MEDS: Metoprolol 25mg tab ORAL SCH ×2 (09:00→20:39)
[2017-08-21 09:06] LABS: BILIRUBIN,DIRECT 0.3 MG/DL (0.0-0.3)
[2017-08-21] MEDS: Tamsulosin 0.4mg cap ORAL SCH ×2 (09:13→18:08)
[2017-08-21] MEDS: Docusate 100mg cap ORAL SCH ×3 (09:13→18:08)
[2017-08-21] MEDS: Aspirin EC 81mg tab ORAL SCH (09:13)
[2017-08-21] MEDS ORDERED: cefTRIAXone 2 GM in NS 55 ML IVPB ONE (09:30)
--- NOTE | 2017-08-21 10:37 | Diagnostic Imaging Report ---
Indication: Chest pain Comparison: 06/09/2014 A single view chest radiograph was obtained. Findings: No definite infiltrate or pulmonary vascular congestion identified. The heart is enlarged. The aorta is mildly enlarged consistent with atherosclerotic vascular disease. The bones are osteopenic. Impression: No acute disease
[2017-08-21] MEDS ORDERED: DiphenhydrAMINE & Zinc 28g Cream TOPIC PRN (11:30)
[2017-08-21 12:00] VITALS: BP 95/40
--- NOTE | 2017-08-21 13:55 | General Progress Note ---
Assessment/Plan Problem List: (1) Fever ICD Codes: R50.9 - Fever, unspecified SNOMED: 408681326 (2) Sepsis ICD Codes: A41.9 - Sepsis, unspecified organism SNOMED: 69789653 (3) Pyelonephritis ICD Codes: N12 - Tubulo-interstitial nephritis, not specified as acute or chronic SNOMED: 33695280 (4) BPH (benign prostatic hyperplasia) ICD Codes: N40.0 - BPH (benign prostatic hyperplasia) SNOMED: 949726662 (5) DM (diabetes mellitus) ICD Codes: E11.9 - DM (diabetes mellitus) SNOMED: 15129622 (6) Dehydration syndrome ICD Codes: E86.0 - Dehydration syndrome SNOMED: 07824819 (7) HTN (hypertension) ICD Codes: I10 - HTN (hypertension) SNOMED: 75303007 Status: stable Assessment/Plan h/o DVT at Picc site right UE antibiotics IV per ID waiting for cultures Subjective ROS Limited/Unobtainable: No Constitutional: Reports: malaise, other - no further chills Allergies: Coded Allergies: PENICILLINS (Verified Allergy, Unknown, 07/01/16) PIPERACILLIN (Verified Allergy, Unknown, Hives, 10/09/15) TAZOBACTAM (Verified Allergy, Unknown, Hives, 10/09/15) Objective Last 24 Hour Vital Signs Date Time Temp Pulse Resp B/P (MAP) Pulse Ox O2 Delivery O2 Flow Rate FiO2 08/21/17 09:00 97 105/65 08/21/17 08:30 97.5 97 20 105/65 99 Nasal Cannula 2.0 97.5 08/21/17 08:00 97.5 97 20 105/65 92 97.5 08/21/17 04:00 Nasal Cannula 2.0 08/21/17 04:00 97.6 75 21 91/56 93 97.6 08/20/17 23:46 102/60 08/20/17 23:00 99.3 08/20/17 22:50 Nasal Cannula 2.0 08/20/17 22:50 99.3 108 20 102/60 95 99.3 08/20/17 22:50 37.88133 108 20 102/60 95 Nasal Cannula 2.0 210.7 08/20/17 22:11 100.3 99 20 116/66 95 Nasal Cannula 2.0 100.3 08/20/17 21:01 102.8 08/20/17 20:41 102.8 102 20 157/76 95 Nasal Cannula 2.0 102.8 08/20/17 18:54 98.6 88 20 144/76 97 Room Air 98.6 08/20/17 17:00 98.7 72 23 154/80 95 Room Air 98.8 Intake and Output 08/20/17 08/21/17 19:00 07:00 Intake Total 0 ml 525 ml Output Total 400 ml Balance 0 ml 125 ml Intake Oral 0 ml IV Total 525 ml Output Urine Total 400 ml # Bowel Movements 1 Laboratory Tests 08/20/17 18:25: White Blood Count 8.0, Red Blood Count 4.95, Hemoglobin 15.3, Hematocrit 45.5, Mean Corpuscular Volume 92, Mean Corpuscular Hemoglobin 30.9, Mean Corpuscular Hemoglobin Concent 33.6, Red Cell Distribution Width 12.0, Platelet Count 120L, Mean Platelet Volume 8.0, Neutrophils (%) (Auto) , Lymphocytes (%) (Auto) , Monocytes (%) (Auto) , Eosinophils (%) (Auto) , Basophils (%) (Auto) , Differential Total Cells Counted 100, Neutrophils % (Manual) 79H, Lymphocytes % (Manual) 14L, Monocytes % (Manual) 3, Eosinophils % (Manual) 2, Basophils % ( Manual) 0, Band Neutrophils 2, Platelet Estimate DecreasedL, Platelet Morphology Normal, Red Blood Cell Morphology Normal, Prothrombin Time 10.4, Prothromb Time International Ratio 1.0, Activated Partial Thromboplast Time 26, Sodium Level 137, Potassium Level 4.7, Chloride Level 101, Carbon Dioxide Level 29, Anion Gap 7, Blood Urea Nitrogen 17, Creatinine 1.0, Estimat Glomerular Filtration Rate , Glucose Level 147H, Calcium Level 9.4, Total Bilirubin 0.8, Aspartate Amino Transf (AST/SGOT) 22, Alanine Aminotransferase (ALT/SGPT) 17, Alkaline Phosphatase 54, Troponin I 0.000, Total Protein 6.7, Albumin 3.5, Globulin 3.2, Albumin/Globulin Ratio 1.1, Lipase 71L 08/20/17 18:40: Urine Color Pale yellow, Urine Appearance Clear, Urine pH 6.5, Urine Specific [place] 1.015, Urine Protein 2+H, Urine Glucose (UA) Negative, Urine Ketones Negative, Urine Occult Blood 4+H, Urine Nitrite PositiveH, Urine Bilirubin Negative, Urine Urobilinogen Normal, Urine Leukocyte Esterase 2+H, Urine RBC 5- 10H, Urine WBC 5-10H, Urine Squamous Epithelial Cells None, Urine Bacteria ModerateH, Urine Sperm Few 08/20/17 20:45: Lactic Acid Level 2.00 08/20/17 22:00: Lactic Acid Level 1.70 08/21/17 06:45: White Blood Count 10.4, Red Blood Count 4.35L, Hemoglobin 13.7L, Hematocrit 40.3L, Mean Corpuscular Volume 93, Mean Corpuscular Hemoglobin 31.5H, Mean Corpuscular Hemoglobin Concent 33.9, Red Cell Distribution Width 12.6, Platelet Count 116L, Mean Platelet Volume 9.1, Neutrophils (%) (Auto) 78.6H, Lymphocytes (%) (Auto) 14.6L, Monocytes (%) (Auto) 6.2, Eosinophils (%) (Auto) 0.1, Basophils (%) (Auto) 0.5, Sodium Level 139, Potassium Level 4.4, Chloride Level 103, Carbon Dioxide Level 32, Anion Gap 4L, Blood Urea Nitrogen 16, Creatinine 1.1, Estimat Glomerular Filtration Rate , Glucose Level 139H, Hemoglobin A1c 7.4H, Uric Acid 5.1, Calcium Level 8.2L, Phosphorus Level 3.8, Magnesium Level 1.9, Total Bilirubin 1.2H, Direct Bilirubin 0.3, Gamma Glutamyl Transpeptidase 61, Aspartate Amino Transf (AST/SGOT) 20, Alanine Aminotransferase (ALT/SGPT) 20 , Alkaline Phosphatase 40L, Total Creatine Kinase 125, Troponin I 0.046, Pro-B- Type Natriuretic Peptide 2661H, Total Protein 5.6L, Albumin 2.8L, Globulin 2.8, Albumin/Globulin Ratio 1.0, Triglycerides Level 56, Cholesterol Level 114, LDL Cholesterol 67, HDL Cholesterol 45, Cholesterol/HDL Ratio 2.5L, Thyroid Stimulating Hormone (TSH) 0.516 Height (Feet): 5 Height (Inches): 9.00 Weight (Pounds): 195 General Appearance: no apparent distress, lethargic Cardiovascular: tachycardia Respiratory/Chest: decreased breath sounds Abdomen: distended Objective no other changes LEROY TAN Aug 21, 2017 13:55
[2017-08-21] MEDS ORDERED: Sodium Chloride 500ML 500 ML IV ONE (14:10)
--- NOTE | 2017-08-21 14:22 | Infectious Diseases Prog Note ---
Assessment/Plan Problems: (1) Acute UTI Assessment & Plan: suspect due to enlarged prostate and urinary retention, will start aztreonam empiric coverage, pending cultures (2) Sepsis Assessment & Plan: due to the above, will start vancomycin and aztreonam empiric coverage, pending blood culture results, increase ivf rate and give boluses to keep SBP>100 (3) Fever with chills Assessment & Plan: due to the above, will start wide spectrum antibiotics , continue Tylenol (4) BPH (benign prostatic hyperplasia) Assessment & Plan: S/P TURP in the past, recommend urology eval for possible surgical resection (5) DM (diabetes mellitus) Assessment & Plan: recommend tight glycemic control to keep blood glucose between 100-140 Subjective Allergies: Coded Allergies: PENICILLINS (Verified Allergy, Unknown, 07/01/16) PIPERACILLIN (Verified Allergy, Unknown, Hives, 10/09/15) TAZOBACTAM (Verified Allergy, Unknown, Hives, 10/09/15) Objective Vital Signs Last 24 Hour Vital Signs Date Time Temp Pulse Resp B/P (MAP) Pulse Ox O2 Delivery O2 Flow Rate FiO2 08/21/17 12:00 97.2 67 20 95/40 94 Room Air 97.2 08/21/17 09:00 97 105/65 08/21/17 08:30 97.5 97 20 105/65 99 Nasal Cannula 2.0 97.5 08/21/17 08:00 97.5 97 20 105/65 92 97.5 08/21/17 04:00 Nasal Cannula 2.0 08/21/17 04:00 97.6 75 21 91/56 93 97.6 08/20/17 23:46 102/60 08/20/17 23:00 99.3 08/20/17 22:50 Nasal Cannula 2.0 08/20/17 22:50 99.3 108 20 102/60 95 99.3 08/20/17 22:50 37.26519 108 20 102/60 95 Nasal Cannula 2.0 210.7 08/20/17 22:11 100.3 99 20 116/66 95 Nasal Cannula 2.0 100.3 08/20/17 21:01 102.8 08/20/17 20:41 102.8 102 20 157/76 95 Nasal Cannula 2.0 102.8 08/20/17 18:54 98.6 88 20 144/76 97 Room Air 98.6 08/20/17 17:00 98.7 72 23 154/80 95 Room Air 98.8 Height (Feet): 5 Height (Inches): 9.00 Weight (Pounds): 195 Microbiology Date/Time Source Procedure Growth Status 08/20/17 19:20 Nose Influenza Types A,B Antigen (KATHIE) - Final Complete 08/20/17 18:40 Urine,Clean Catch Urine Culture - Preliminary NO GROWTH Resulted Laboratory Tests Test 08/20/17 18:25 08/20/17 18:40 08/20/17 20:45 08/20/17 22:00 White Blood Count 8.0 K/UL (4.8-10.8) Red Blood Count 4.95 M/UL (4.70-6.10) Hemoglobin 15.3 G/DL (14.2-18.0) Hematocrit 45.5 % (42.0-52.0) Mean Corpuscular Volume 92 FL (80-99) Mean Corpuscular Hemoglobin 30.9 PG (27.0-31.0) Mean Corpuscular Hemoglobin Concent 33.6 G/DL (32.0-36.0) Red Cell Distribution Width 12.0 % (11.6-14.8) Platelet Count 120 K/UL (150-450) L Mean Platelet Volume 8.0 FL (6.5-10.1) Neutrophils (%) (Auto) % (45.0-75.0) Lymphocytes (%) (Auto) % (20.0-45.0) Monocytes (%) (Auto) % (1.0-10.0) Eosinophils (%) (Auto) % (0.0-3.0) Basophils (%) (Auto) % (0.0-2.0) Differential Total Cells Counted 100 Neutrophils % (Manual) 79 % (45-75) H Lymphocytes % (Manual) 14 % (20-45) L Monocytes % (Manual) 3 % (1-10) Eosinophils % (Manual) 2 % (0-3) Basophils % (Manual) 0 % (0-2) Band Neutrophils 2 % (0-8) Platelet Estimate Decreased L Platelet Morphology Normal Red Blood Cell Morphology Normal Prothrombin Time 10.4 SEC (9.30-11.50) Prothromb Time International Ratio 1.0 (0.9-1.1) Activated Partial Thromboplast Time 26 SEC (23-33) Sodium Level 137 MMOL/L (136-145) Potassium Level 4.7 MMOL/L (3.5-5.1) Chloride Level 101 MMOL/L (98-107) Carbon Dioxide Level 29 MMOL/L (21-32) Anion Gap 7 mmol/L (5-15) Blood Urea Nitrogen 17 mg/dL (7-18) Creatinine 1.0 MG/DL (0.55-1.30) Estimat Glomerular Filtration Rate mL/min (>60) Glucose Level 147 MG/DL (74-106) H Calcium Level 9.4 MG/DL (8.5-10.1) Total Bilirubin 0.8 MG/DL (0.2-1.0) Aspartate Amino Transf (AST/SGOT) 22 U/L (15-37) Alanine Aminotransferase (ALT/SGPT) 17 U/L (12-78) Alkaline Phosphatase 54 U/L (46-116) Troponin I 0.000 ng/mL (0.000-0.056) Total Protein 6.7 G/DL (6.4-8.2) Albumin 3.5 G/DL (3.4-5.0) Globulin 3.2 g/dL Albumin/Globulin Ratio 1.1 (1.0-2.7) Lipase 71 U/L (73-393) L Urine Color Pale yellow Urine Appearance Clear Urine pH 6.5 (4.5-8.0) Urine Specific [place] 1.015 (1.005-1.035) Urine Protein 2+ (NEGATIVE) H Urine Glucose (UA) Negative (NEGATIVE) Urine Ketones Negative (NEGATIVE) Urine Occult Blood 4+ (NEGATIVE) H Urine Nitrite Positive (NEGATIVE) H Urine Bilirubin Negative (NEGATIVE) Urine Urobilinogen Normal MG/DL (0.0-1.0) Urine Leukocyte Esterase 2+ (NEGATIVE) H Urine RBC 5-10 /HPF (0 - 0) H Urine WBC 5-10 /HPF (0 - 0) H Urine Squamous Epithelial Cells None /LPF (NONE/OCC) Urine Bacteria Moderate /HPF (NONE) H Urine Sperm Few /LPF (NONE) Lactic Acid Level 2.00 mmol/L (0.66-2.22) 1.70 mmol/L (0.66-2.22) Test 08/21/17 06:45 White Blood Count 10.4 K/UL (4.8-10.8) Red Blood Count 4.35 M/UL (4.70-6.10) L Hemoglobin 13.7 G/DL (14.2-18.0) L Hematocrit 40.3 % (42.0-52.0) L Mean Corpuscular Volume 93 FL (80-99) Mean Corpuscular Hemoglobin 31.5 PG (27.0-31.0) H Mean Corpuscular Hemoglobin Concent 33.9 G/DL (32.0-36.0) Red Cell Distribution Width 12.6 % (11.6-14.8) Platelet Count 116 K/UL (150-450) L Mean Platelet Volume 9.1 FL (6.5-10.1) Neutrophils (%) (Auto) 78.6 % (45.0-75.0) H Lymphocytes (%) (Auto) 14.6 % (20.0-45.0) L Monocytes (%) (Auto) 6.2 % (1.0-10.0) Eosinophils (%) (Auto) 0.1 % (0.0-3.0) Basophils (%) (Auto) 0.5 % (0.0-2.0) Sodium Level 139 MMOL/L (136-145) Potassium Level 4.4 MMOL/L (3.5-5.1) Chloride Level 103 MMOL/L (98-107) Carbon Dioxide Level 32 MMOL/L (21-32) Anion Gap 4 mmol/L (5-15) L Blood Urea Nitrogen 16 mg/dL (7-18) Creatinine 1.1 MG/DL (0.55-1.30) Estimat Glomerular Filtration Rate mL/min (>60) Glucose Level 139 MG/DL (74-106) H Hemoglobin A1c 7.4 % (4.3-6.0) H Uric Acid 5.1 MG/DL (2.6-7.2) Calcium Level 8.2 MG/DL (8.5-10.1) L Phosphorus Level 3.8 MG/DL (2.5-4.9) Magnesium Level 1.9 MG/DL (1.8-2.4) Total Bilirubin 1.2 MG/DL (0.2-1.0) H Direct Bilirubin 0.3 MG/DL (0.0-0.3) Gamma Glutamyl Transpeptidase 61 U/L (5-85) Aspartate Amino Transf (AST/SGOT) 20 U/L (15-37) Alanine Aminotransferase (ALT/SGPT) 20 U/L (12-78) Alkaline Phosphatase 40 U/L (46-116) L Total Creatine Kinase 125 U/L (26-308) Troponin I 0.046 ng/mL (0.000-0.056) Pro-B-Type Natriuretic Peptide 2661 pg/mL (0-125) H Total Protein 5.6 G/DL (6.4-8.2) L Albumin 2.8 G/DL (3.4-5.0) L Globulin 2.8 g/dL Albumin/Globulin Ratio 1.0 (1.0-2.7) Triglycerides Level 56 MG/DL (30-150) Cholesterol Level 114 MG/DL (< 200) LDL Cholesterol 67 mg/dL (<100) HDL Cholesterol 45 MG/DL (40-60) Cholesterol/HDL Ratio 2.5 (3.3-4.4) L Thyroid Stimulating Hormone (TSH) 0.516 uiU/mL (0.358-3.740) Current Medications Medications (Trade) Dose Ordered Sig/Ashley Route PRN Reason Start Time Stop Time Status Last Admin Dose Admin Aspirin (Ecotrin) 81 mg DAILY ORAL 08/21/17 09:00 09/20/17 08:59 08/21/17 09:13 Aztreonam 2 gm/ Dextrose 110 ml @ 220 mls/hr Q8HR@0000,0800,1600 IVPB 08/21/17 16:00 08/28/17 15:59 Diphenhydramine HCl (Benadryl Cream) 1 applic TIDPRN PRN TOPIC Itching 08/21/17 11:30 09/20/17 11:29 Docusate Sodium (Colace) 100 mg TID ORAL 08/21/17 09:00 09/20/17 08:59 08/21/17 12:46 Heparin Sodium (Porcine) (Heparin 5000 units/ml) 5,000 units EVERY 12 HOURS SUBQ 08/21/17 09:00 09/20/17 08:59 Lansoprazole (Prevacid) 30 mg DAILY ORAL 08/21/17 09:00 09/20/17 08:59 08/21/17 09:13 Metoprolol Tartrate (Lopressor) 25 mg Q12HR ORAL 08/21/17 09:00 09/20/17 08:59 Nitroglycerin (Ntg) 1 patch Q24H TDERMAL 08/20/17 22:00 09/19/17 21:59 08/20/17 23:46 Sitagliptin Phosphate (Januvia) 50 mg ACBREAKFAST ORAL 08/21/17 06:30 09/20/17 06:29 08/21/17 06:16 Sodium Chloride 500 ml @ 999 mls/hr Q31M ONCE IV 08/21/17 14:10 08/21/17 14:40 08/21/17 13:54 Tamsulosin HCl (Flomax) 0.4 mg BID ORAL 08/20/17 21:45 09/19/17 21:44 08/21/17 09:13 Trazodone HCl (Desyrel) 50 mg BEDTIME ORAL 08/21/17 21:00 09/20/17 20:59 Vancomycin HCl (Vanco rx to dose) 1 ea DAILY PRN MISC Per rx protocol 08/21/17 13:15 09/20/17 13:14 Vancomycin HCl/ Dextrose 250 ml @ 125 mls/hr ONCE ONCE IVPB 08/21/17 14:30 08/21/17 16:29 Vancomycin HCl/ Dextrose 250 ml @ 166.667 mls/hr Q24H IVPB 08/22/17 14:30 08/27/17 14:29 Zolpidem Tartrate (Ambien) 5 mg BEDTIME PRN ORAL Insomnia 08/20/17 21:45 08/27/17 21:44 Kevon Montano M.D. Aug 21, 2017 14:22
[2017-08-21] MEDS ORDERED: Vancomycin 1.5 GM/D5W 250ML IVPB ONE (14:30)
[2017-08-21] MEDS ORDERED: Albumin Human 5% 250ml IV ONE (15:15)
[2017-08-21 16:00] VITALS: BP 111/63
--- NOTE | 2017-08-21 16:27 | Cardiology Report ---
APPROVED REPORT EKG Measurement Heart [id number] ND [id number] [id number] Sinus rhythm with premature atrial complexes Right bundle branch block Left anterior fascicular block Bifascicular block Abnormal ECG
[2017-08-21] MEDS: Aztreonam Inj 2 GM in D5W 110 ML IVPB SCH (17:29)
[2017-08-21 20:00] VITALS: BP 132/80
[2017-08-21] MEDS: TraZODone 50mg tab ORAL SCH (20:41)
[2017-08-21] MEDS: Nitroglycerin Patch 0.2mg/hr TDERMAL SCH (21:53)
--- NOTE | 2017-08-21 23:00 | History and Physical Report ---
DATE OF ADMISSION: 08/20/2017 HISTORY OF PRESENT ILLNESS: The patient is an 87-year-old male very well known to me from his previous admission. He came in to the emergency room complaining of generalized weakness. However, he gave history of having had chills at home and he took one Macrobid. In the emergency room, the patient was initially examined by the PA and subsequently by the doctor, who initially wanted to send the patient home on oral Keflex, however, the patient apparently had another episode of chills, tachycardia, and was somewhat hypotensive. The patient was admitted with a diagnosis of sepsis for further management. PAST MEDICAL HISTORY: The past history of the patient is significant for type 2 diabetes, obesity, osteoarthritis, BPH, hypertension, and previous UTIs. The most recent one was in June of this year for which the patient was discharged off home with a PICC line on IV Rocephin. ALLERGIES: Penicillin and Zosyn. PHYSICAL EXAMINATION: GENERAL: The patient is pale and tachycardic. Blood pressure 100 systolic, pulse rate 97, and the patient on the oxygen with a pulse oximetry of 93%. HEENT: Face is pale. Head normocephalic. LUNGS: No wheezes. No rhonchi. HEART: Tachycardic. ABDOMEN: Obese and soft. Bowel sounds present. EXTREMITIES: Lower extremities, trace edema. CENTRAL NERVOUS SYSTEM: Oriented and nonfocal. LABORATORY DATA: White blood cells 8000, hemoglobin 15.3, and glucose 147. Normal electrolytes. The urine showed 10 white blood cells, 2+ leukocyte esterase, and 2+ protein. IMPRESSION: This patient with a previous history of urinary tract infection and bacteremia, again is presenting with acute urinary tract infection and most likely sepsis. This is all most likely related to the urine. The patient had fever and chills and is somewhat hypotensive and tachycardic. Other conditions, benign prostatic hypertrophy and diabetes mellitus. PLAN: The patient will be on IV hydration, IV antibiotics per Dr. Montano suggestions. Meanwhile, we will continue the patient on the stool softeners, metoprolol, Prevacid, diabetic pills, and Flomax. Pending cultures. According to how the patient's condition evolves, we will make the proper changes in our future management. Caio Linus Paige DR: SOFIA JOB#: [id number] CC:
--- NOTE | 2017-08-21 23:30 | Consultation ---
DATE OF CONSULTATION: 08/21/2017 INFECTIOUS DISEASE CONSULTATION CONSULTING PHYSICIAN: Kevon Montano M.D. REQUESTING PHYSICIAN: Caio Paige M.D. REASON FOR CONSULTATION: Sepsis, UTI, recommendation for antibiotics treatment in a patient who is allergic to penicillin.Dr. Kearney. Full arc again. HISTORY OF PRESENT ILLNESS: The patient is an 87-year-old male with past medical history of benign prostatic hypertrophy, status post TURP couple of years ago and diabetes with recent sepsis due to UTI and enlarged prostate, was brought into the emergency room at [facility] for fever and chills at home. The patient started having fever and chills last night and he was brought into the emergency room by his son. His symptoms improved when he arrived at the emergency room, but when he tried to go to the bathroom, he had pain and difficulty urination and he developed fever and chills again in the emergency room. So, he was admitted to the hospital. The patient had temperature of 98.8 in ER. His urinalysis showed evidence of infection. The patient had significant history of enlarged prostate, status post TURP, which was couple of years ago and was supposed to follow up with his urologist, but he never did and was hospitalized. Urinalysis showed evidence of infection. The patient received ceftriaxone and Infectious Disease consultation was requested for further evaluation and management of his sepsis and urinary tract infection due to penicillin allergy. As of note, the patient is a poor historian, Farsi speaker only. History was mainly obtained from the son on the phone and the medical record. REVIEW OF SYSTEMS: A 14-point of systems reviewed, all were negative apart from the one I mentioned above in my History and Physical. PAST MEDICAL HISTORY: Significant for benign prostatic hypertrophy, status post TURP; diabetes; right bundle-branch block; pneumonia; and sepsis due to UTI recently. PAST SURGICAL HISTORY: He had TURP couple of years ago. FAMILY HISTORY: Unable to obtain. SOCIAL HISTORY: The patient lives at home with son. Denied using any drugs, tobacco, or alcohol. ALLERGIES: He is allergic to penicillin and Zosyn. He gets rash and swelling. MEDICATIONS: The patient was given gentamicin in the emergency room and ceftriaxone. For the rest of his medications, please refer to MAR. LABS: White count is 10.4, hemoglobin of 13.7, platelet count of 116. BUN 16 creatinine 1.1. Urinalysis showed positive nitrites, +2 leukocyte esterase, WBC 5 to 10, and moderate amount of urine bacteria. Microbiology, urine culture pending. Influenza A and B so far negative. IMAGING: Chest x-ray showed no acute disease. PHYSICAL EXAMINATION: VITAL SIGNS: Temperature 97.2, pulse 67, respirations 20, blood pressure 95/40, and saturation 94% on room air. GENERAL: An elderly male, lying in bed, awake, alert, responsive, not in acute distress, Farsi speaker. HEENT: Normocephalic and atraumatic. Pupils are reactive to light. Pale sclerae. Moist oral mucosa. No exudate or thrush. NECK: Supple. No lymphadenopathy. No JVD. CARDIOVASCULAR: He is tachycardic. S1 and S2 normal. No murmur or gallop. LUNGS: Clear bilaterally. Diminished breathing sounds at the bases. No wheezing or rhonchi. ABDOMEN: Soft. Distended. Nontender. No organomegaly. No ascites. No suprapubic tenderness. EXTREMITIES: No edema. No cyanosis. No clubbing. SKIN: No rash. No hives. ASSESSMENT AND RECOMMENDATION: 1. Acute urinary tract infection with possible pyelonephritis due to enlarged prostate and urinary retention. We will start the patient on aztreonam empiric coverage pending urine culture. We will obtain renal ultrasound to rule out abscess of the kidneys or bladder. 2. Sepsis due to the above. We will start vancomycin and aztreonam empiric coverage pending blood culture results. We will increase his IV fluid rate and give boluses to keep systolic more than 100. 3. Fever and chills due to the above. We will start wide-spectrum antibiotics. Continue Tylenol. 4. Benign prostatic hypertrophy, status post transurethral resection of prostate in the past. Recommend urology evaluation for possible surgical resection in the future due to recurrent obstructive symptoms and urinary tract infection with sepsis. 5. Diabetes. Recommend tight glycemic control to keep blood glucose between 100 to 140. Thank you for the consultation. Infectious Disease will continue to follow. Please feel free to call us with any question. Kevon Montano M.D. DR: JOHN JOB#: [id number] CC:
[2017-08-22] VITALS: BP 92/57
[2017-08-22] MEDS: Aztreonam Inj 2 GM in D5W 110 ML IVPB SCH ×4 (01:30→23:03)
[2017-08-22] MEDS: sitaGLIPtin 50mg tab ORAL SCH (06:41)
[2017-08-22 08:00] VITALS: BP 131/64
[2017-08-22 08:39] LABS: BASOPHILS % (AUTO) 0.6 % (0.0-2.0); EOSINOPHILS % (AUTO) 1.7 % (0.0-3.0); HEMATOCRIT 39.9 % (42.0-52.0); HEMOGLOBIN 13.5 G/DL (14.2-18.0); LYMPHOCYTES % (AUTO) 27.5 % (20.0-45.0); MEAN CORPUSCULAR VOLUME 93 FL (80-99); MONOCYTES % (AUTO) 7.6 % (1.0-10.0); NEUTROPHILS % (AUTO) 62.7 % (45.0-75.0); PLATELET COUNT 125 K/UL (150-450); RED BLOOD COUNT 4.31 M/UL (4.70-6.10); RED CELL DISTRIBUTION WIDTH 12.4 % (11.6-14.8); WHITE BLOOD COUNT 6.9 K/UL (4.8-10.8)
[2017-08-22] MEDS: Docusate 100mg cap ORAL SCH ×3 (08:57→17:04)
[2017-08-22] MEDS: Metoprolol 25mg tab ORAL SCH ×2 (08:57→21:56)
[2017-08-22] MEDS: Aspirin EC 81mg tab ORAL SCH (08:57)
[2017-08-22] MEDS: Tamsulosin 0.4mg cap ORAL SCH ×2 (08:57→17:04)
[2017-08-22] MEDS: Heparin 5000 units/ml inj SUBQ SCH (08:58)
[2017-08-22 09:01] LABS: ALANINE AMINOTRANSFERASE 18 U/L (12-78); ALBUMIN 2.8 G/DL (3.4-5.0); ALBUMIN/GLOBULIN RATIO 0.9 (1.0-2.7); ALKALINE PHOSPHATASE 41 U/L (46-116); ANION GAP 2 mmol/L (5-15); ASPARTATE AMINO TRANSFERASE 20 U/L (15-37); BILIRUBIN,TOTAL 0.6 MG/DL (0.2-1.0); BLOOD UREA NITROGEN 16 mg/dL (7-18); CALCIUM 8.4 MG/DL (8.5-10.1); CARBON DIOXIDE 32 MMOL/L (21-32); CHLORIDE 104 MMOL/L (98-107); CREATININE 1.2 MG/DL (0.55-1.30); PHOSPHORUS 2.9 MG/DL (2.5-4.9); POTASSIUM 4.6 MMOL/L (3.5-5.1); SODIUM 138 MMOL/L (136-145)
--- NOTE | 2017-08-22 09:53 | Diagnostic Imaging Report ---
Indication: Urinary tract infection. Pyelonephritis. Renal Stones Technique: Grayscale and duplex Doppler imaging of the kidneys performed. Comparison: None Findings: Cortical echogenicity and renal size are normal. Both kidneys measure between 10 and 11 cm. Cysts of varying size. The largest cyst is 3.5 cm x 4.2 cm in the left kidney. There is no hydronephrosis. Urinary bladder mildly distended. No definite renal calculi identified. IVC is unremarkable. IMPRESSION: Bilateral renal cysts. No evidence of obstructive nephropathy or definite renal stones identified.
[2017-08-22] MEDS ORDERED: Vancomycin 1250mg/D5W 250ml IVPB SCH (14:30)
--- NOTE | 2017-08-22 14:34 | General Progress Note ---
Assessment/Plan Problem List: (1) Fever ICD Codes: R50.9 - Fever, unspecified SNOMED: 493888469 (2) Sepsis ICD Codes: A41.9 - Sepsis, unspecified organism SNOMED: 94604181 (3) Pyelonephritis ICD Codes: N12 - Tubulo-interstitial nephritis, not specified as acute or chronic SNOMED: 73670208 (4) BPH (benign prostatic hyperplasia) ICD Codes: N40.0 - BPH (benign prostatic hyperplasia) SNOMED: 030746290 (5) DM (diabetes mellitus) ICD Codes: E11.9 - DM (diabetes mellitus) SNOMED: 11779214 (6) Dehydration syndrome ICD Codes: E86.0 - Dehydration syndrome SNOMED: 18212790 (7) HTN (hypertension) ICD Codes: I10 - HTN (hypertension) SNOMED: 48240533 Assessment/Plan h/o DVT at Picc site right UE antibiotics IV per ID waiting for cultures DC IV fluid recheck UA Subjective ROS Limited/Unobtainable: No Constitutional: Reports: other - stronger- no pain Allergies: Coded Allergies: PENICILLINS (Verified Allergy, Unknown, 07/01/16) PIPERACILLIN (Verified Allergy, Unknown, Hives, 10/09/15) TAZOBACTAM (Verified Allergy, Unknown, Hives, 10/09/15) Objective Last 24 Hour Vital Signs Date Time Temp Pulse Resp B/P (MAP) Pulse Ox O2 Delivery O2 Flow Rate FiO2 08/22/17 08:57 72 131/64 08/22/17 08:00 98.2 72 21 131/64 94 Room Air 98.2 08/22/17 00:00 08/21/17 21:53 132/80 08/21/17 20:39 67 117/58 08/21/17 20:00 98.1 66 21 132/80 93 98.1 08/21/17 16:00 97.3 66 20 111/63 95 Room Air 97.3 Intake and Output 08/21/17 08/22/17 19:00 07:00 Intake Total 1165 ml Output Total 900 ml 2100 ml Balance 265 ml -2100 ml Intake Oral 680 ml IV Total 485 ml Output Urine Total 900 ml 2100 ml # Voids 4 # Bowel Movements 2 Laboratory Tests 08/22/17 07:57: White Blood Count 6.9, Red Blood Count 4.31L, Hemoglobin 13.5L, Hematocrit 39.9L , Mean Corpuscular Volume 93, Mean Corpuscular Hemoglobin 31.4H, Mean Corpuscular Hemoglobin Concent 33.9, Red Cell Distribution Width 12.4, Platelet Count 125L, Mean Platelet Volume 9.3, Neutrophils (%) (Auto) 62.7, Lymphocytes ( %) (Auto) 27.5, Monocytes (%) (Auto) 7.6, Eosinophils (%) (Auto) 1.7, Basophils (%) (Auto) 0.6, Sodium Level 138, Potassium Level 4.6, Chloride Level 104, Carbon Dioxide Level 32, Anion Gap 2L, Blood Urea Nitrogen 16, Creatinine 1.2, Estimat Glomerular Filtration Rate , Glucose Level 162H, Uric Acid 5.5, Calcium Level 8.4L, Phosphorus Level 2.9, Magnesium Level 2.0, Total Bilirubin 0.6, Aspartate Amino Transf (AST/SGOT) 20, Alanine Aminotransferase (ALT/SGPT) 18, Alkaline Phosphatase 41L, C-Reactive Protein, Quantitative 7.0H, Pro-B-Type Natriuretic Peptide 727H, Total Protein 6.0L, Albumin 2.8L, Globulin 3.2, Albumin/Globulin Ratio 0.9L Height (Feet): 5 Height (Inches): 9.00 Weight (Pounds): 195 General Appearance: no apparent distress Neck: supple Cardiovascular: normal rate Respiratory/Chest: lungs clear Abdomen: soft Objective no other changes LEROY TAN Aug 22, 2017 14:34
--- NOTE | 2017-08-22 15:23 | Infectious Diseases Prog Note ---
Assessment/Plan Problems: (1) Acute UTI Assessment & Plan: suspect due to enlarged prostate and urinary retention, continue aztreonam empiric coverage, pending cultures (2) Sepsis Assessment & Plan: due to the above, will continue vancomycin and aztreonam empiric coverage, pending blood culture results, continue hydration to keep SBP >100 (3) Fever with chills Assessment & Plan: due to the above, continue wide spectrum antibiotics , and continue Tylenol (4) BPH (benign prostatic hyperplasia) Assessment & Plan: S/P TURP in the past, recommend urology eval for possible surgical resection (5) DM (diabetes mellitus) Assessment & Plan: recommend tight glycemic control to keep blood glucose between 100-140 Subjective Constitutional: Reports: no symptoms HEENT: Reports: no symptoms Respiratory: Reports: no symptoms Breasts: Reports: no symptoms Cardiovascular: Reports: no symptoms Gastrointestinal/Abdominal: Reports: no symptoms Genitourinary: Reports: no symptoms Neurologic: Reports: no symptoms Psychiatric: Reports: no symptoms Skin: Reports: no symptoms Endocrine: Reports: no symptoms Hematologic: Reports: no symptoms Musculoskeletal: Reports: no symptoms Allergies: Coded Allergies: PENICILLINS (Verified Allergy, Unknown, 07/01/16) PIPERACILLIN (Verified Allergy, Unknown, Hives, 10/09/15) TAZOBACTAM (Verified Allergy, Unknown, Hives, 10/09/15) Objective Vital Signs Last 24 Hour Vital Signs Date Time Temp Pulse Resp B/P (MAP) Pulse Ox O2 Delivery O2 Flow Rate FiO2 08/22/17 08:57 72 131/64 08/22/17 08:00 98.2 72 21 131/64 94 Room Air 98.2 08/22/17 00:00 08/21/17 21:53 132/80 08/21/17 20:39 67 117/58 08/21/17 20:00 98.1 66 21 132/80 93 98.1 08/21/17 16:00 97.3 66 20 111/63 95 Room Air 97.3 Height (Feet): 5 Height (Inches): 9.00 Weight (Pounds): 195 General Appearance: WD/WN, no acute distress HEENT: normocephalic, atraumatic, anicteric, mucous membranes moist, PERRL Respiratory/Chest: chest wall non-tender, lungs clear, normal breath sounds, no respiratory distress, no accessory muscle use Cardiovascular: normal peripheral pulses, normal rate, regular rhythm, no gallop/murmur, no JVD Abdomen: normal bowel sounds, soft, non tender, no organomegaly, non distended , no mass, no scars Extremities: no cyanosis, no clubbing Skin: no rash, no lesions, no ulcers Neurologic/Psychiatric: alert, responsive Lymphatic: no neck adenopathy, no groin adenopathy Musculoskeletal: normal muscle bulk, no effusion Microbiology Date/Time Source Procedure Growth Status 08/20/17 20:45 Blood Blood Culture - Preliminary NO GROWTH AFTER 24 HOURS Resulted 08/20/17 20:00 Blood Blood Culture - Preliminary NO GROWTH AFTER 24 HOURS Resulted 08/20/17 19:20 Nose Influenza Types A,B Antigen (KATHIE) - Final Complete 08/20/17 18:40 Urine,Clean Catch Urine Culture - Preliminary Gram Negative Bacillus 1 Resulted Laboratory Tests Test 08/22/17 07:57 White Blood Count 6.9 K/UL (4.8-10.8) Red Blood Count 4.31 M/UL (4.70-6.10) L Hemoglobin 13.5 G/DL (14.2-18.0) L Hematocrit 39.9 % (42.0-52.0) L Mean Corpuscular Volume 93 FL (80-99) Mean Corpuscular Hemoglobin 31.4 PG (27.0-31.0) H Mean Corpuscular Hemoglobin Concent 33.9 G/DL (32.0-36.0) Red Cell Distribution Width 12.4 % (11.6-14.8) Platelet Count 125 K/UL (150-450) L Mean Platelet Volume 9.3 FL (6.5-10.1) Neutrophils (%) (Auto) 62.7 % (45.0-75.0) Lymphocytes (%) (Auto) 27.5 % (20.0-45.0) Monocytes (%) (Auto) 7.6 % (1.0-10.0) Eosinophils (%) (Auto) 1.7 % (0.0-3.0) Basophils (%) (Auto) 0.6 % (0.0-2.0) Sodium Level 138 MMOL/L (136-145) Potassium Level 4.6 MMOL/L (3.5-5.1) Chloride Level 104 MMOL/L (98-107) Carbon Dioxide Level 32 MMOL/L (21-32) Anion Gap 2 mmol/L (5-15) L Blood Urea Nitrogen 16 mg/dL (7-18) Creatinine 1.2 MG/DL (0.55-1.30) Estimat Glomerular Filtration Rate mL/min (>60) Glucose Level 162 MG/DL (74-106) H Uric Acid 5.5 MG/DL (2.6-7.2) Calcium Level 8.4 MG/DL (8.5-10.1) L Phosphorus Level 2.9 MG/DL (2.5-4.9) Magnesium Level 2.0 MG/DL (1.8-2.4) Total Bilirubin 0.6 MG/DL (0.2-1.0) Aspartate Amino Transf (AST/SGOT) 20 U/L (15-37) Alanine Aminotransferase (ALT/SGPT) 18 U/L (12-78) Alkaline Phosphatase 41 U/L (46-116) L C-Reactive Protein, Quantitative 7.0 mg/dL (0.00-0.90) H Pro-B-Type Natriuretic Peptide 727 pg/mL (0-125) H Total Protein 6.0 G/DL (6.4-8.2) L Albumin 2.8 G/DL (3.4-5.0) L Globulin 3.2 g/dL Albumin/Globulin Ratio 0.9 (1.0-2.7) L Current Medications Medications (Trade) Dose Ordered Sig/Ashley Route PRN Reason Start Time Stop Time Status Last Admin Dose Admin Aspirin (Ecotrin) 81 mg DAILY ORAL 08/21/17 09:00 09/20/17 08:59 08/22/17 08:57 Aztreonam 2 gm/ Dextrose 110 ml @ 220 mls/hr Q8HR@0000,0800,1600 IVPB 08/21/17 16:00 08/28/17 15:59 08/22/17 08:57 Diphenhydramine HCl (Benadryl Cream) 1 applic TIDPRN PRN TOPIC Itching 08/21/17 11:30 09/20/17 11:29 08/21/17 16:39 Docusate Sodium (Colace) 100 mg TID ORAL 08/21/17 09:00 09/20/17 08:59 08/22/17 13:31 Heparin Sodium (Porcine) (Heparin 5000 units/ml) 5,000 units EVERY 12 HOURS SUBQ 08/21/17 09:00 09/20/17 08:59 Lansoprazole (Prevacid) 30 mg DAILY ORAL 08/21/17 09:00 09/20/17 08:59 08/22/17 08:57 Metoprolol Tartrate (Lopressor) 25 mg Q12HR ORAL 08/21/17 09:00 09/20/17 08:59 08/22/17 08:57 Nitroglycerin (Ntg) 1 patch Q24H TDERMAL 08/20/17 22:00 09/19/17 21:59 08/21/17 21:53 Sitagliptin Phosphate (Januvia) 50 mg ACBREAKFAST ORAL 08/21/17 06:30 09/20/17 06:29 08/22/17 06:41 Tamsulosin HCl (Flomax) 0.4 mg BID ORAL 08/20/17 21:45 09/19/17 21:44 08/22/17 08:57 Trazodone HCl (Desyrel) 50 mg BEDTIME ORAL 08/21/17 21:00 09/20/17 20:59 08/21/17 20:41 Vancomycin HCl (Vanco rx to dose) 1 ea DAILY PRN MISC Per rx protocol 08/21/17 13:15 09/20/17 13:14 Vancomycin HCl/ Dextrose 250 ml @ 166.667 mls/hr Q24H IVPB 08/22/17 14:30 08/27/17 14:29 08/21/17 15:26 Zolpidem Tartrate (Ambien) 5 mg BEDTIME PRN ORAL Insomnia 08/20/17 21:45 08/27/17 21:44 Kevon Montano M.D. Aug 22, 2017 15:23
[2017-08-22 16:23] VITALS: BP 112/58
[2017-08-22] MEDS ORDERED: Enoxaparin 80mg Inj SUBQ ONE (17:00)
[2017-08-22 18:54] LABS: APPEARANCE,URINE CLEAR; BILIRUBIN, URINE NEGATIVE (NEGATIVE); COLOR,URINE PALE YELLOW; GLUCOSE, URINE (UA) NEGATIVE (NEGATIVE); KETONES,URINE NEGATIVE (NEGATIVE); LEUKOCYTE ESTERASE ,URINE 2+ (NEGATIVE); NITRITE,URINE NEGATIVE (NEGATIVE); PH,URINE 6.5 (4.5-8.0); PROTEIN,URINE NEGATIVE (NEGATIVE); UROBILINOGEN,URINE NORMAL MG/DL (0.0-1.0)
[2017-08-22 20:00] VITALS: BP 147/85
[2017-08-22] MEDS: TraZODone 50mg tab ORAL SCH (21:56)
[2017-08-22] MEDS: Nitroglycerin Patch 0.2mg/hr TDERMAL SCH (21:58)
[2017-08-23] MEDS: sitaGLIPtin 50mg tab ORAL SCH (06:38)
[2017-08-23 08:00] VITALS: BP 149/81
[2017-08-23] MEDS ORDERED: Enoxaparin 80mg Inj SUBQ SCH (09:00)
[2017-08-23] MEDS: Docusate 100mg cap ORAL SCH ×2 (09:01→12:02)
[2017-08-23] MEDS: Tamsulosin 0.4mg cap ORAL SCH (09:01)
[2017-08-23] MEDS: Aspirin EC 81mg tab ORAL SCH (09:01)
[2017-08-23] MEDS: Metoprolol 25mg tab ORAL SCH (09:03)
[2017-08-23] MEDS: Aztreonam Inj 2 GM in D5W 110 ML IVPB SCH (09:07)
--- NOTE | 2017-08-23 10:16 | General Progress Note ---
Assessment/Plan Problem List: (1) Fever ICD Codes: R50.9 - Fever, unspecified SNOMED: 994952032 (2) Sepsis ICD Codes: A41.9 - Sepsis, unspecified organism SNOMED: 91978668 (3) Pyelonephritis Assessment & Plan: E coli ICD Codes: N12 - Tubulo-interstitial nephritis, not specified as acute or chronic SNOMED: 50262170 (4) BPH (benign prostatic hyperplasia) ICD Codes: N40.0 - BPH (benign prostatic hyperplasia) SNOMED: 250906860 (5) DM (diabetes mellitus) ICD Codes: E11.9 - DM (diabetes mellitus) SNOMED: 25946541 (6) Dehydration syndrome ICD Codes: E86.0 - Dehydration syndrome SNOMED: 05218723 (7) HTN (hypertension) ICD Codes: I10 - HTN (hypertension) SNOMED: 74437327 Status: stable Status Narrative BC neg Urine c/s Ecoli Assessment/Plan h/o DVT at Picc site right UE start Eliquis antibiotics change to po macrobid 10 days Discharge FU Urologist [facility] IMPRESSION: Bilateral renal cysts. No evidence of obstructive nephropathy or definite renal stones identified. Subjective ROS Limited/Unobtainable: No Constitutional: Reports: other - stronger Allergies: Coded Allergies: PENICILLINS (Verified Allergy, Unknown, 07/01/16) PIPERACILLIN (Verified Allergy, Unknown, Hives, 10/09/15) TAZOBACTAM (Verified Allergy, Unknown, Hives, 10/09/15) Objective Last 24 Hour Vital Signs Date Time Temp Pulse Resp B/P (MAP) Pulse Ox O2 Delivery O2 Flow Rate FiO2 08/23/17 09:03 61 149/81 08/23/17 08:00 98.1 61 18 149/81 91 Room Air 98.1 08/23/17 04:00 17 08/23/17 00:00 18 08/22/17 21:58 112/58 08/22/17 21:56 77 112/58 08/22/17 20:00 97.9 63 18 147/85 93 Room Air 97.9 08/22/17 16:23 98.3 77 18 112/58 97 Room Air 98.3 Intake and Output 08/22/17 08/23/17 19:00 07:00 Intake Total 110 ml 700 ml Output Total 700 ml Balance 110 ml 0 ml Intake Oral 480 ml IV Total 110 ml 220 ml Output Urine Total 700 ml # Voids 2 2 Current Medications Medications (Trade) Dose Ordered Sig/Ashley Route PRN Reason Start Time Stop Time Status Last Admin Dose Admin Apixaban (Eliquis) 5 mg DAILY ORAL 08/23/17 10:15 09/22/17 10:14 UNV Aspirin (Ecotrin) 81 mg DAILY ORAL 08/21/17 09:00 09/20/17 08:59 08/23/17 09:01 Diphenhydramine HCl (Benadryl Cream) 1 applic TIDPRN PRN TOPIC Itching 08/21/17 11:30 09/20/17 11:29 08/21/17 16:39 Docusate Sodium (Colace) 100 mg TID ORAL 08/21/17 09:00 09/20/17 08:59 08/23/17 09:01 Lansoprazole (Prevacid) 30 mg DAILY ORAL 08/21/17 09:00 09/20/17 08:59 08/23/17 09:01 Metoprolol Tartrate (Lopressor) 25 mg Q12HR ORAL 08/21/17 09:00 09/20/17 08:59 08/23/17 09:03 Nitroglycerin (Ntg) 1 patch Q24H TDERMAL 08/20/17 22:00 09/19/17 21:59 08/22/17 21:58 Sitagliptin Phosphate (Januvia) 50 mg ACBREAKFAST ORAL 08/21/17 06:30 09/20/17 06:29 08/23/17 06:38 Tamsulosin HCl (Flomax) 0.4 mg BID ORAL 08/20/17 21:45 09/19/17 21:44 08/23/17 09:01 Trazodone HCl (Desyrel) 50 mg BEDTIME ORAL 08/21/17 21:00 09/20/17 20:59 08/22/17 21:56 Vancomycin HCl (Vanco rx to dose) 1 ea DAILY PRN MISC Per rx protocol 08/21/17 13:15 09/20/17 13:14 Zolpidem Tartrate (Ambien) 5 mg BEDTIME PRN ORAL Insomnia 08/20/17 21:45 08/27/17 21:44 Laboratory Tests 08/22/17 18:48: Urine Color Pale yellow, Urine Appearance Clear, Urine pH 6.5, Urine Specific Butler 1.010, Urine Protein Negative, Urine Glucose (UA) Negative, Urine Ketones Negative, Urine Occult Blood 4+H, Urine Nitrite Negative, Urine Bilirubin Negative, Urine Urobilinogen Normal, Urine Leukocyte Esterase 2+H, Urine RBC 5-10H, Urine WBC 2-4, Urine Squamous Epithelial Cells None, Urine Bacteria Few Height (Feet): 5 Height (Inches): 9.00 Weight (Pounds): 195 General Appearance: no apparent distress Objective no other changes LEROY TAN Aug 23, 2017 10:15
[2017-08-23] MEDS ORDERED: ELIQUIS2.5 MG ORAL (10:18)
--- NOTE | 2017-08-23 10:20 | Discharge Instructions ---
Discharge Instructions Discharge Instructions Follow up with: fu with urologist Diet: cardiac 2 GM Na, low fat, other - low CHO Special Instructions call if fever and chills dysuria For Congestive Heart Failure Reminder Report to your physician any weight gain of 5 pounds or more in one week. LEROY TAN Aug 23, 2017 10:20
[2017-08-23] MEDS ORDERED: Eliquis 2.5mg tablet ORAL SCH (11:30)
[2017-08-23 12:00] VITALS: BP 135/75
--- NOTE | 2017-08-23 14:14 | Infectious Diseases Prog Note ---
Assessment/Plan Problems: (1) Acute UTI Assessment & Plan: due to E coli , with E coli , suspect due to enlarged prostate and urinary retention, may switch aztreonam empiric coverage to keflex to finish his course for 7 days , follow up with urologist (2) Sepsis Assessment & Plan: ruled out, will stop vancomycin and aztreonam empiric coverage (3) Fever with chills Assessment & Plan: due to the above, resolved, continue Tylenol prn (4) BPH (benign prostatic hyperplasia) Assessment & Plan: S/P TURP in the past, recommend urology eval for possible surgical resection (5) DM (diabetes mellitus) Assessment & Plan: recommend tight glycemic control to keep blood glucose between 100-140 Subjective Constitutional: Reports: no symptoms HEENT: Reports: no symptoms Respiratory: Reports: no symptoms Breasts: Reports: no symptoms Cardiovascular: Reports: no symptoms Gastrointestinal/Abdominal: Reports: no symptoms Genitourinary: Reports: no symptoms Neurologic: Reports: no symptoms Psychiatric: Reports: no symptoms Skin: Reports: no symptoms Endocrine: Reports: no symptoms Hematologic: Reports: no symptoms Musculoskeletal: Reports: no symptoms Allergies: Coded Allergies: PENICILLINS (Verified Allergy, Unknown, 07/01/16) PIPERACILLIN (Verified Allergy, Unknown, Hives, 10/09/15) TAZOBACTAM (Verified Allergy, Unknown, Hives, 10/09/15) Objective Vital Signs Last 24 Hour Vital Signs Date Time Temp Pulse Resp B/P (MAP) Pulse Ox O2 Delivery O2 Flow Rate FiO2 08/23/17 12:00 97.2 56 18 135/75 93 Room Air 97.2 08/23/17 09:03 61 149/81 08/23/17 08:00 98.1 61 18 149/81 91 Room Air 98.1 08/23/17 04:00 17 08/23/17 00:00 18 08/22/17 21:58 112/58 08/22/17 21:56 77 112/58 08/22/17 20:00 97.9 63 18 147/85 93 Room Air 97.9 08/22/17 16:23 98.3 77 18 112/58 97 Room Air 98.3 Height (Feet): 5 Height (Inches): 9.00 Weight (Pounds): 195 General Appearance: WD/WN, no acute distress HEENT: normocephalic, atraumatic, anicteric, mucous membranes moist, PERRL Respiratory/Chest: chest wall non-tender, lungs clear, normal breath sounds, no respiratory distress, no accessory muscle use Breasts: no masses Cardiovascular: normal peripheral pulses, normal rate, regular rhythm, no gallop/murmur, no JVD Abdomen: normal bowel sounds, soft, non tender, no organomegaly, non distended , no mass, no scars Extremities: no cyanosis, no clubbing Skin: no rash, no lesions, no ulcers Neurologic/Psychiatric: alert, oriented x 3, responsive Lymphatic: no neck adenopathy, no groin adenopathy Microbiology Date/Time Source Procedure Growth Status 08/20/17 20:45 Blood Blood Culture - Preliminary NO GROWTH AFTER 48 HOURS Resulted 08/20/17 20:00 Blood Blood Culture - Preliminary NO GROWTH AFTER 48 HOURS Resulted 08/20/17 19:20 Nose Influenza Types A,B Antigen (KATHIE) - Final Complete 08/20/17 18:40 Urine,Clean Catch Urine Culture - Preliminary Escherichia Coli Resulted Laboratory Tests Test 08/22/17 18:48 Urine Color Pale yellow Urine Appearance Clear Urine pH 6.5 (4.5-8.0) Urine Specific Hitchcock 1.010 (1.005-1.035) Urine Protein Negative (NEGATIVE) Urine Glucose (UA) Negative (NEGATIVE) Urine Ketones Negative (NEGATIVE) Urine Occult Blood 4+ (NEGATIVE) H Urine Nitrite Negative (NEGATIVE) Urine Bilirubin Negative (NEGATIVE) Urine Urobilinogen Normal MG/DL (0.0-1.0) Urine Leukocyte Esterase 2+ (NEGATIVE) H Urine RBC 5-10 /HPF (0 - 0) H Urine WBC 2-4 /HPF (0 - 0) Urine Squamous Epithelial Cells None /LPF (NONE/OCC) Urine Bacteria Few /HPF (NONE) Current Medications Medications (Trade) Dose Ordered Sig/Ashley Route PRN Reason Start Time Stop Time Status Last Admin Dose Admin Apixaban (Eliquis) 5 mg DAILY ORAL 08/23/17 11:30 09/22/17 11:29 08/23/17 12:00 Aspirin (Ecotrin) 81 mg DAILY ORAL 08/21/17 09:00 09/20/17 08:59 08/23/17 09:01 Diphenhydramine HCl (Benadryl Cream) 1 applic TIDPRN PRN TOPIC Itching 08/21/17 11:30 09/20/17 11:29 08/21/17 16:39 Docusate Sodium (Colace) 100 mg TID ORAL 08/21/17 09:00 09/20/17 08:59 08/23/17 12:02 Lansoprazole (Prevacid) 30 mg DAILY ORAL 08/21/17 09:00 09/20/17 08:59 08/23/17 09:01 Metoprolol Tartrate (Lopressor) 25 mg Q12HR ORAL 08/21/17 09:00 09/20/17 08:59 08/23/17 09:03 Nitrofurantoin (Macrobid) 100 mg EVERY 12 HOURS ORAL 08/23/17 11:00 09/22/17 10:59 08/23/17 12:00 Nitroglycerin (Ntg) 1 patch Q24H TDERMAL 08/20/17 22:00 09/19/17 21:59 08/22/17 21:58 Sitagliptin Phosphate (Januvia) 50 mg ACBREAKFAST ORAL 08/21/17 06:30 09/20/17 06:29 08/23/17 06:38 Tamsulosin HCl (Flomax) 0.4 mg BID ORAL 08/20/17 21:45 09/19/17 21:44 08/23/17 09:01 Trazodone HCl (Desyrel) 50 mg BEDTIME ORAL 08/21/17 21:00 09/20/17 20:59 08/22/17 21:56 Zolpidem Tartrate (Ambien) 5 mg BEDTIME PRN ORAL Insomnia 08/20/17 21:45 08/27/17 21:44 Kevon Montano M.D. Aug 23, 2017 14:14
[2017-08-23] MEDS ORDERED: NS 275ml ONE (16:10)
[2017-08-23] MEDS ORDERED: Tubing IV Secondary IV ONE (16:10)
--- NOTE | 2017-08-24 12:04 | Discharge Summary ---
Discharge Summary Hospital Course Date of Admission Aug 20, 2017 at 20:45 Date of Discharge Aug 23, 2017 at 16:11 Admitting Diagnosis UTI HPI Christa Yu is a 87 year old male who was admitted on Aug 20, 2017 at 20: 45 for Urinary Tract Infection Hospital Course [id number] Discharge Discharge Disposition Patient was discharged to Home (01) Discharge Diagnoses: Discharge Instructions Discharge Instructions Follow up with: fu with urologist Karlie Dominguez NP Aug 24, 2017 12:04
--- NOTE | 2017-08-25 02:15 | Discharge Summary 2 SIG ---
DATE OF ADMISSION: 08/20/2017 DATE OF DISCHARGE: 08/23/2017 EQUIPMENT VALIDATION SPECIALIST: Kevon Montano M.D. BRIEF HOSPITAL COURSE: The patient is an 87-year-old male, who came to emergency room complaining of generalized weakness. He complained of chills at home and had taken Macrobid. He has medical history significant for type 2 diabetes, obesity, osteoarthritis, BPH, hypertension, and previous urinary tract infection, most recent was June this year where the patient was discharged home with PICC line to continue IV Rocephin. On evaluation at ED, temperature was elevated to 102.8. He started having chills. Blood work did not show any leukocytosis. Urine had 2+ leukocyte esterase with 5 to 10 WBC and 5 to 10 RBCs. The patient was admitted for acute urinary tract infection most likely sepsis. The patient had fever and chills and was hypotensive and tachycardic. He was started on IV hydration and was continued on home medications. He was seen by Infectious Disease specialist for antibiotic management of possible pyelonephritis due to enlarged prostate and urinary retention. He was started empirically on aztreonam and vancomycin. He was given Tylenol p.r.n. fever. He had a renal ultrasound done that showed bilateral renal cysts with no evidence of obstructive nephropathy or renal stones. He was continued on Januvia 50 mg daily. Hemoglobin A1c was 7.4. Urine culture showed growth of E. coli. Aztreonam was switched to Keflex. Blood cultures did not isolate any growth. Vancomycin was discontinued. He was eventually cleared for discharge home. He had history of DVT on the right upper extremity. He was started on Eliquis. He was eventually cleared for discharge home to continue Eliquis and p.o. antibiotic. FINAL DIAGNOSES: 1. Acute pyelonephritis with Escherichia coli. 2. Fever and chills due to urinary tract infection/pyelonephritis. 3. Benign prostatic hypertrophy. 4. Diabetes mellitus. 5. Dehydration. 6. Hypertension. 7. Deep venous thrombosis at right upper arm, present on admission. 8. Sepsis, ruled out. Blood cultures negative. DISPOSITION: The patient was discharged home. DISCHARGE MEDICATIONS: Continue with Eliquis and complete Macrobid for 10 more days. DISCHARGE INSTRUCTIONS: Follow up with urologist as outpatient. Caio Paige M.D. I have been assigned to dictate discharge summary on this account and I was not involved in the patient's management. Karlie Dominguez N.P. DR: JOHNNY JOB#: [id number] CC: BETI
== END 2017-08-23 16:11 | disposition home or self-care (01) | DRG 690 ==
LOC: EMR 17:50 → 4E 20:45 → EDBEDREQ 21:43
DX: N10 Acute pyelonephritis (principal); E86.0 Dehydration; E11.9 Type 2 diabetes mellitus without complications; I82.621 Acute embolism and thrombosis of deep veins of right upper extremity; I10 Essential (primary) hypertension; B96.20 Unspecified Escherichia coli [E. coli] as the cause of diseases classified elsewhere; M19.90 Unspecified osteoarthritis, unspecified site; E66.9 Obesity, unspecified; N40.1 Benign prostatic hyperplasia with lower urinary tract symptoms; R33.8 Other retention of urine; Z88.0 Allergy status to penicillin; Z68.28 Body mass index [BMI] 28.0-28.9, adult
CPT/HCPCS: 36415; 71045; 76770; 80053; 80061; 81001; 81003; 82248; 82550; 82962; 82977; 83036; 83605; 83690; 83735; 83880; 84100; 84443; 84484; 84550; 85007; 85025; 85610; 85730; 86140; 86710; 87040; 87086; 87181; 93005; 99285